=== PATIENT | female | born 1930 | race American Indian/Alaskan Native ===

== ENCOUNTER 2018-07-12 12:36 | Inpatient (IN) | payer MEDICARE, OTHER ==
[2018-07-12 12:51] VITALS: BMI 26.6
--- NOTE | 2018-07-12 13:07 | ED PDOC ---
Arrival/HPI - General Historian: Patient, Family - History of Present Illness Narrative History of Present Illness (Text): 07/12/18 1 88 year old female with a past medical history of diabetes, hypertension, hyperlipidemia, who presents to the hospital for lightheadedness and dizziness since this morning. 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 She reports taking both her blood pressure and diabetic medications this morning without eating. Patient denies any chest pain, fevers, chills, headaches, syncopal episodes, or any other complaints. Medical history: dm, htn, hld Medications: Hydralazine, Atorvastatin, Levimir, Losartan, Furosemide, Metoprolol, Aspirin 81mg PO Allergies: Denies Surgical: Can't recall PMD: Dr. Polk Time/Duration: Prior to Arrival Symptom Onset: Sudden Symptom Course: Unchanged Quality: Aching Severity Level: 1 Activities at Onset: Rest Context: Sitting <Maurice Moore - Last Filed: 07/12/18 20:43> Past Medical History - Provider Review Nursing Documentation Reviewed: Yes - Travel History Have you recently traveled outside [place] w/in the past 3 mons?: No - Infectious Disease Hx of Infectious Diseases: None - Reproductive Menopause: Yes - Cardiac Hx Hypertension: Yes - Psychiatric Hx Substance Use: No - Anesthesia Hx Anesthesia: No Hx Anesthesia Reactions: No Hx Malignant Hyperthermia: No <Maurice Moore - Last Filed: 07/12/18 20:43> Family/Social History - Physician Review Nursing Documentation Reviewed: Yes Family/Social History: No Known Family HX Smoking Status: Never Smoked Hx Alcohol Use: No Hx Substance Use: No <Maurice Moore - Last Filed: 07/12/18 20:43> Allergies/Home Meds <Maurice Moore - Last Filed: 07/12/18 20:43> <Michelet Cagle DO - Last Filed: 07/13/18 15:38> Allergies/Adverse Reactions: Allergies No Known Allergies Allergy (Verified 07/12/18 12:57) Home Medications: Home Meds Medication Instructions Recorded Confirmed Aspirin [Ecotrin] 1 tab PO DAILY 07/12/18 07/12/18 Insulin Detemir [Levemir] 20 units SC DAILY 07/12/18 07/12/18 Losartan [Cozaar] 1 tab PO DAILY 07/12/18 07/12/18 Metoprolol Tartrate [Lopressor] 1 tab PO DAILY 07/12/18 07/12/18 hydrALAZINE [hydralazine 50 mg PO BID 07/12/18 07/12/18 Hydrochloride] Review of Systems - Physician Review All systems were reviewed & negative as marked: Yes - Review of Systems Constitutional: Normal. absent: Fatigue, Weight Change, Fevers Eyes: Normal. absent: Vision Changes, Photophobia, Eye Pain ENT: Normal. absent: Hearing Changes, Tinnitus, Rhinorrhea Respiratory: Normal. absent: SOB, Sputum Cardiovascular: Normal. absent: Chest Pain, Palpitations, Syncope Gastrointestinal: Normal. absent: Abdominal Pain, Nausea, Vomiting Skin: Normal. absent: Rash, Pruritis, Skin Lesions Neurological: Dizziness. absent: Focal Weakness, Speech Changes, Facial Droop, Seizure Endocrine: Normal. absent: Diaphoresis, Polyuria, Polydipsia Hemo/Lymphatic: Normal. absent: Adenopathy, Easy Bleeding Psychiatric: Normal. absent: Anxiety, Depression <Maurice Moore - Last Filed: 07/12/18 20:43> Physical Exam Vital Signs Reviewed: Yes Vital Signs Temp Pulse Resp BP Pulse Ox 07/12/18 12:43 97.5 F L 74 19 138/89 97 Temperature: Afebrile Blood Pressure: Normal Pulse: Regular Respiratory Rate: Normal Appearance: Positive for: Well-Appearing, Non-Toxic, Comfortable Pain Distress: None Mental Status: Positive for: Alert and Oriented X 3. No: Confused - Systems Exam Head: Present: Atraumatic, Normocephalic. No: Abrasion Pupils: Present: PERRL. No: Sluggish Extroacular Muscles: Present: EOMI. No: Gaze Palsy Conjunctiva: Present: Normal. No: Injected Mouth: Present: Moist Mucous Membranes. No: Dry, Normal Teeth Pharnyx: Present: Normal. No: ERYTHEMA, Uvular Deviation Neck: Present: Normal Range of Motion. No: Meningeal Signs, JVD Respiratory/Chest: Present: Clear to Auscultation, Good Air Exchange. No: Wheezes Cardiovascular: Present: Irregular Rhythm. No: Tachycardic Abdomen: Present: Normal Bowel Sounds. No: Tenderness, Distention, McBurney's Point Tender Upper Extremity: Present: Normal Inspection. No: Cyanosis, Edema, Erythema Lower Extremity: Present: Normal Inspection. No: Edema Neurological: Present: CN II-XII Intact, Speech Normal. No: Normal Cerebellar Funct Skin: Present: Dry, Normal Color. No: Cold Psychiatric: Present: Oriented x 3, Normal Insight. No: Normal Mood, Homicidal Ideation <Maurice Moore - Last Filed: 07/12/18 20:43> Vital Signs Temp Pulse Resp BP Pulse Ox 07/12/18 12:43 97.5 F L 74 19 138/89 97 <Tsering Michelet MACE - Last Filed: 07/13/18 15:38> Medical Decision Making ED Course and Treatment: 07/12/18 13:09 88 year old female with a past medical history of diabetes, hypertension, hyperlipidemia, who presents to the hospital for lightheadedness and dizziness since this morning. Plan: CBC CMP ProBNP EKG Head CT IV Zofran 07/12/18 15:37 Dr. Polk accepted to her service. - RAD Interpretation Radiology Orders: 07/12/18 12:57 HEAD W/O CONTRAST [CT] Stat - EKG Interpretation EKG Interpretation (Text): 07/12/18 13:28 Atrial Fibrillation @88bpm No ST-T changes. Interpreted by ED Physician: Yes Type: 12 lead EKG <Maurice Moore - Last Filed: 07/12/18 20:43> ED Course and Treatment: 07/12/18 14:05 Soila Isidro is an 88 year old female with a past medical history of DM, HTN, and HLD, who presents to the emergency department for a complaint of lightheadedness and dizziness. In agreement with residents note, which includes further HPI details. Patient was seen and evaluated with resident, came up with plan and treatment together. - Lab Interpretations Lab Results: 07/12/18 13:30 07/12/18 13:30 Lab Results 07/12/18 13:30: Sodium 140, Potassium 4.0, Chloride 106, Carbon Dioxide 21, Anion Gap 17, BUN 24 H, Creatinine 1.1, Est GFR ( Amer) 57, Est GFR (Non- Af Amer) 47, Random Glucose 221 H, Calcium 10.0, Total Bilirubin 0.8, AST 34, ALT 36, Alkaline Phosphatase 108, Troponin I < 0.01, NT-Pro-B Natriuret Pep 1600 H, Total Protein 8.6 H, Albumin 4.6, Globulin 4.0, Albumin/Globulin Ratio 1.2 07/12/18 13:30: WBC 7.6, RBC 4.50, Hgb 12.7, Hct 37.2, MCV 82.7, MCH 28.2, MCHC 34.1, RDW 15.4 H, Plt Count 195, MPV 10.1, Gran % 79.4 H, Lymph % (Auto) 12.5 L, [place] % (Auto) 6.6 H, Eos % (Auto) 1.1 L, Baso % (Auto) 0.4, Gran # 6.05, Lymph # (Auto) 1.0 L, [place] # (Auto) 0.5, Eos # (Auto) 0.1, Baso # (Auto) 0.03 - RAD Interpretation Radiology Orders: 07/12/18 12:57 HEAD W/O CONTRAST [CT] Stat 07/12/18 13:58 CXR [CHEST PORTABLE] [RAD] Stat - Medication Orders Current Medication Orders: Discontinued Medications Meclizine HCl (Antivert) 25 mg PO STAT STA Stop: 07/12/18 13:59 Ondansetron HCl (Zofran Inj) 4 mg IVP STAT STA Stop: 07/12/18 13:14 Last Admin: 07/12/18 13:32 Dose: 4 mg IVP Administration Document 07/12/18 13:32 BB (Rec: 07/12/18 13:35 BB [id number]) Charges for Administration # of IVP Administrations 1 <Michelet Cagle DO - Last Filed: 07/13/18 15:38> - PA / ADVERTISING COPY WRITER / Resident Statement KEN has reviewed & agrees with the documentation as recorded. KEN has examined the patient and agrees with the treatment plan. <Mihcelet Cagle DO - Last Filed: 07/13/18 15:38> Disposition/Present on Arrival - Present on Arrival Any Indicators Present on Arrival: No History of DVT/PE: No History of Uncontrolled Diabetes: No Urinary Catheter: No History of Decub. Ulcer: No History Surgical Site Infection Following: None - Disposition Have Diagnosis and Disposition been Completed?: Yes Disposition Time: 15:37 Patient Plan: Admission <Maurice Moore - Last Filed: 07/12/18 20:43> - Disposition Disposition Time: 14:45 <Michelet Cagle DO - Last Filed: 07/13/18 15:38> - Disposition Diagnosis: Dizziness Disposition: HOSPITALIZED Patient Problems: Current Active Problems Problem Status Onset Dizziness Acute Condition: STABLE
[2018-07-12 13:38] LABS: BASO # 0.03 K/mm3 (0.0-2.0); BASO % 0.4 % (0.0-3.0); EOS # 0.1 (0.0-0.7); EOS % 1.1 % (1.5-5.0); GRAN # 6.05 (1.4-6.5); GRAN % 79.4 % (50.0-68.0); HEMOGLOBIN 12.7 g/dL (12.0-16.0); LYMPH % 12.5 % (22.0-35.0); MEAN CELL VOLUME 82.7 fl (80.0-105.0); MEAN CORPUSCULAR HEMOGLOBIN 28.2 pg (25.0-35.0); MEAN CORPUSCULAR HGB CONC 34.1 g/dl (31.0-37.0); MEAN PLATELET VOLUME 10.1 fl (7.0-11.0); MONO # 0.5 (0.1-0.6); MONO % 6.6 % (1.0-6.0); RBC 4.5 10^6/uL (3.5-6.1); RED CELL DISTRIBUTION WIDTH 15.4 % (11.5-14.5); WHITE BLOOD COUNT 7.6 10^3/uL (4.5-11.0)
[2018-07-12 13:45] LABS: ALB/GLOB RATIO 1.2 (1.1-1.8); ALBUMIN 4.6 g/dL (3.0-4.8); ALT/SGPT 36 U/L (7-56); AST/SGOT 34 U/L (14-36); BLOOD UREA NITROGEN 24 mg/dL (7-21); GFR NON-AFRICAN AMERICAN 47
--- NOTE | 2018-07-12 13:54 | CT ---
Date of service: 07/12/2018 PROCEDURE: CT HEAD WITHOUT CONTRAST. HISTORY: dizzy COMPARISON: None available. TECHNIQUE: Axial computed tomography images were obtained through the head/brain without intravenous contrast. Radiation dose: Total exam DLP = 1183.28 mGy-cm. This CT exam was performed using one or more of the following dose reduction techniques: Automated exposure control, adjustment of the mA and/or kV according to patient size, and/or use of iterative reconstruction technique. FINDINGS: HEMORRHAGE: No intracranial hemorrhage. BRAIN: No mass effect or edema. Chronic microvascular changes. Mild atrophy VENTRICLES: Unremarkable. No hydrocephalus. CALVARIUM: Unremarkable. PARANASAL SINUSES: Unremarkable as visualized. No significant inflammatory changes. MASTOID AIR CELLS: Unremarkable as visualized. No inflammatory changes. OTHER FINDINGS: None. IMPRESSION: No acute intracranial findings
[2018-07-12 13:57] LABS: B-TYPE NATRIURETIC PEPTIDE 1600 pg/mL (0-450); TROPONIN I < 0.01 ng/mL
[2018-07-12 14:10] LABS: URINE BILIRUBIN NEGATIVE (NEGATIVE); URINE BLOOD NEGATIVE (NEGATIVE); URINE GLUCOSE (UA) NEGATIVE (NEGATIVE); URINE LEUKOCYTE ESTERASE NEGATIVE Leu/uL (NEGATIVE); URINE PROTEIN NEGATIVE mg/dL (<30 mg/dL); URINE UROBILINOGEN 0.2 E.U./dL (<1 E.U./dL)
[2018-07-12 14:11] LABS: URINE APPEARANCE CLEAR (CLEAR); URINE COLOR YELLOW (YELLOW)
--- NOTE | 2018-07-12 14:56 | RAD ---
Date of service: 07/12/2018 HISTORY: r/o infiltrate COMPARISON: No prior. FINDINGS: LUNGS: No active pulmonary disease. PLEURA: No significant pleural effusion identified, no pneumothorax apparent. CARDIOVASCULAR: No aortic atherosclerotic calcification present. Severe cardiomegaly no pulmonary vascular congestion. OSSEOUS STRUCTURES: No significant abnormalities. VISUALIZED UPPER ABDOMEN: Normal. OTHER FINDINGS: None. IMPRESSION: No active disease. Severe cardiomegaly
--- NOTE | 2018-07-12 19:31 | CARD ---
APPROVED REPORT Date of service: 07/12/2018 EKG Measurement Heart [id number] <Conclusion> Atrial fibrillation T wave abnormality, consider inferolateral ischemia or digitalis effect Abnormal ECG
[2018-07-12] MEDS: Insulin Reg-LOW-Coverage SC SCH (23:38)
--- NOTE | 2018-07-13 06:19 | HP ---
DATE OF EXAM: <> CHIEF COMPLAINTS: Syncope, falling. HISTORY OF PRESENT ILLNESS: Ms. Soila Isidro an 88-year-old female with past medical history of diabetes mellitus, hypertension, hypercholesterolemia came to the hospital for lightheadedness, dizziness and this morning as per the patient, she missed her breakfast. The patient was setting up food for homeless when she became lightheaded and dizzy and hit her head. She reports taking both of her blood pressure and diabetes medications this morning without eating. The patient denied any chest pain. No fever, chills. No hematuria or hematochezia. PAST MEDICAL HISTORY: Diabetes mellitus, hypertension, hypercholesterolemia. HOME MEDICATIONS: Reviewed by me. ALLERGIES: THE PATIENT IS NOT ALLERGIC WITH ANY MEDICATIONS. FAMILY HISTORY: Father and mother, noncontributory. HABITS: Never smoke. No drugs, no ethanol. REVIEW OF SYSTEMS: The patient was seen and examined on the bedside in her room, looking comfortable. No hematuria or hematochezia. No swelling of the leg. No chest pain, no palpitations. No headache. No dizziness. Lying down comfortably. No fevers, no chills. PHYSICAL EXAMINATION: VITAL SIGNS: Temperature 97.5, pulse 74, respiratory rate 19, blood pressure 138/89, pulse oximetry 97. HEENT: Head: Normocephalic and atraumatic. Eyes: PERRLA. Extraocular muscles intact. Conjunctivae clear. Nose patent. NECK: Supple. No carotid bruit. No JVD or thyromegaly. CHEST: Bilaterally symmetrical. HEART: S1 and S2 positive. LUNGS: Clear to auscultation. ABDOMEN: Soft. Bowel sounds positive. No organomegaly. EXTREMITIES: No edema. No cyanosis. NEUROLOGICAL: The patient is awake, alert. Moving all 4 extremities. No focal deficits. LABORATORY DATA: White blood cells 4.6, hemoglobin 12.7, hematocrit 37.2, platelets 195,000. Sodium 140, potassium 4, BUN 24, creatinine 1.1, glucose 221, BNP 1500, calcium 8.6. ASSESSMENT AND PLAN: Ms. Soila Isidro an 88-year-old lady with increased BUN, hyperglycemia, congestive heart failure came with lightheadedness, feeling of passing out. CAT scan of the head is done, no acute intracranial findings. The patient almost passed out. The patient has history of diabetes mellitus, hypertension, hypercholesterolemia. Admitted the patient, called neurology and cardiology consult. Started on medication, home medications; keeping under observation. Gastrointestinal and deep venous thrombosis prophylaxis. Repeat labs. We will follow up. Gricel Price MD PAMELA
[2018-07-13 07:17] LABS: IRON 110 ug/dL (45-180)
[2018-07-13 07:23] LABS: HEMOGLOBIN 11.5 g/dL (12.0-16.0); MEAN CORPUSCULAR HEMOGLOBIN 27.9 pg (25.0-35.0); MEAN PLATELET VOLUME 10.5 fl (7.0-11.0); RBC 4.12 10^6/uL (3.5-6.1); RED CELL DISTRIBUTION WIDTH 15.4 % (11.5-14.5); WHITE BLOOD COUNT 5.8 10^3/uL (4.5-11.0)
[2018-07-13 07:27] LABS: % IRON SATURATION 38 % (20-55); TOTAL IRON BINDING CAPACITY 291 ug/dL (265-497)
[2018-07-13 07:32] LABS: LDL CHOLESTEROL 84 mg/dL (0-129)
[2018-07-13 07:33] LABS: TROPONIN I 0.04 ng/mL
[2018-07-13 07:43] LABS: BLOOD UREA NITROGEN 18 mg/dL (7-21); CALCIUM 9.4 mg/dL (8.4-10.5); GFR NON-AFRICAN AMERICAN 47; HDL CHOLESTEROL 81 mg/dL (29-60)
--- NOTE | 2018-07-13 08:53 | CP.PCM.CON ---
History of Present Illness - History of Present Illness History of Present Illness: Awake, alert, denies dizziness,feels okay Reason for consultation: Cardiac evaluation of lightheadedness and dizziness, history of hypertension, hyperlipidemia, diabetes mellitus Brief history of present illness: A 88 year old female who came in to the ER due to lightheadedness and dizziness yesterday morning. The patient was [facility] [employer] [facility] a [employer] for the [employer] when she became lightheaded, dizzy and fell and hit her head. She reports taking both her blood pressure and diabetic medications without eating. History of diabetes, hypertension, hyperlipidemia. Seen and examined by me and Dr. Jain Review of Systems - Review of Systems All systems: reviewed and no additional remarkable complaints except Review of Systems: as per HPI Past Patient History - Infectious Disease Hx of Infectious Diseases: None - Past Social History Smoking Status: Never Smoked - CARDIAC Hx Hypertension: Yes - PULMONARY Hx Respiratory Disorders: No - NEUROLOGICAL Hx Neurological Disorder: No - HEENT Hx Cataracts: Yes Other/Comment: s/p bilateral cataract surgery. - RENAL Hx Chronic Kidney Disease: No - ENDOCRINE/METABOLIC Hx Diabetes Mellitus Type 2: Yes - HEMATOLOGICAL/ONCOLOGICAL Hx Blood Disorders: No - INTEGUMENTARY Hx Dermatological Problems: No - MUSCULOSKELETAL/RHEUMATOLOGICAL Hx Falls: Yes - GASTROINTESTINAL Hx Gastrointestinal Disorders: No - GENITOURINARY/GYNECOLOGICAL Hx Genitourinary Disorders: No - PSYCHIATRIC Hx Substance Use: No - SURGICAL HISTORY Hx Surgeries: Yes Other/Comment: pt thinks she had hysterectomy and her ovaries removed a long time ago. - ANESTHESIA Hx Anesthesia: No Hx Anesthesia Reactions: No Hx Malignant Hyperthermia: No Meds Allergies/Adverse Reactions: Allergies Allergy/AdvReac Type Severity Reaction Status Date / Time No Known Allergies Allergy Verified 07/12/18 12:57 - Medications Medications: Current Medications Aspirin (Ecotrin) 81 mg PO DAILY [facility] Hydralazine HCl (Apresoline) 50 mg PO BID [facility] Last Admin: 07/12/18 18:52 Dose: 50 mg Insulin Detemir (Levemir) 20 unit SC DAILY [facility] Insulin Human Regular (Humulin R Low) [address] [facility]; Protocol Last Admin: 07/12/18 23:38 Dose: Not Given Losartan Potassium (Cozaar) 100 mg PO DAILY [facility] Metoprolol Tartrate (Lopressor) 25 mg PO DAILY [facility] Physical Exam - Constitutional Appears: Non-toxic, No Acute Distress - Head Exam Head Exam: NORMAL INSPECTION, NORMOCEPHALIC - Eye Exam Eye Exam: Normal appearance Pupil Exam: NORMAL ACCOMODATION - ENT Exam ENT Exam: Mucous Membranes Moist, Normal Exam - Respiratory Exam Respiratory Exam: Clear to Auscultation Bilateral, NORMAL BREATHING PATTERN - Cardiovascular Exam Cardiovascular Exam: Irregular Rhythm, +S1, +S2 Additional comments: Telemetry Atrial fibrillation 70-80's - GI/Abdominal Exam GI & Abdominal Exam: Normal Bowel Sounds, Soft - Extremities Exam Extremities exam: Positive for: full ROM, normal capillary refill - Neurological Exam Neurological exam: Alert, Oriented x3 - Psychiatric Exam Psychiatric exam: Normal Affect, Normal Mood - Skin Skin Exam: Dry, Normal Color, Warm Results - Vital Signs Recent Vital Signs: Last Vital Signs Temp 98.0 F 07/13/18 06:00 Pulse 77 07/13/18 06:00 Resp 13 07/13/18 06:00 BP 112/59 L 07/13/18 06:00 Pulse Ox 96 07/12/18 17:09 - Labs Result Diagrams: 07/13/18 06:30 07/13/18 06:30 Labs: Laboratory Results - last 24 hr 07/12/18 07/12/18 07/12/18 12:51 13:15 13:30 WBC 7.6 RBC 4.50 Hgb 12.7 Hct 37.2 MCV 82.7 MCH 28.2 MCHC 34.1 RDW 15.4 H Plt Count 195 MPV 10.1 Gran % 79.4 H Lymph % (Auto) 12.5 L [place] % (Auto) 6.6 H Eos % (Auto) 1.1 L Baso % (Auto) 0.4 Gran # 6.05 Lymph # (Auto) 1.0 L [place] # (Auto) 0.5 Eos # (Auto) 0.1 Baso # (Auto) 0.03 Sodium Potassium Chloride Carbon Dioxide Anion Gap BUN Creatinine Est GFR ( Amer) Est GFR (Non-Af Amer) POC Glucose (mg/dL) 193 H Random Glucose Calcium Iron TIBC % Saturation Total Bilirubin AST ALT Alkaline Phosphatase Lactate Dehydrogenase Total Creatine Kinase Troponin I NT-Pro-B Natriuret Pep Total Protein Albumin Globulin Albumin/Globulin Ratio Triglycerides Cholesterol LDL Cholesterol Direct HDL Cholesterol TSH 3rd Generation Urine Color Yellow Urine Appearance Clear Urine pH 6.0 Ur Specific [place] 1.010 Urine Protein Negative Urine Glucose (UA) Negative Urine Ketones Negative Urine Blood Negative Urine Nitrate Negative Urine Bilirubin Negative Urine Urobilinogen 0.2 Ur Leukocyte Esterase Negative 07/12/18 07/12/18 07/13/18 13:30 21:52 06:30 WBC RBC Hgb Hct MCV MCH MCHC RDW Plt Count MPV Gran % Lymph % (Auto) [place] % (Auto) Eos % (Auto) Baso % (Auto) Gran # Lymph # (Auto) [place] # (Auto) Eos # (Auto) Baso # (Auto) Sodium 140 140 Potassium 4.0 3.9 Chloride 106 107 Carbon Dioxide 21 25 Anion Gap 17 11 BUN 24 H 18 Creatinine 1.1 1.1 Est GFR ( Amer) 57 57 Est GFR (Non-Af Amer) 47 47 POC Glucose (mg/dL) 162 H Random Glucose 221 H 150 H Calcium 10.0 9.4 Iron TIBC % Saturation Total Bilirubin 0.8 AST 34 ALT 36 Alkaline Phosphatase 108 Lactate Dehydrogenase 599 Total Creatine Kinase 216 Troponin I < 0.01 0.04 D NT-Pro-B Natriuret Pep 1600 H Total Protein 8.6 H Albumin 4.6 Globulin 4.0 Albumin/Globulin Ratio 1.2 Triglycerides 58 Cholesterol 175 LDL Cholesterol Direct 84 HDL Cholesterol 81 H TSH 3rd Generation Urine Color Urine Appearance Urine pH Ur Specific [place] Urine Protein Urine Glucose (UA) Urine Ketones Urine Blood Urine Nitrate Urine Bilirubin Urine Urobilinogen Ur Leukocyte Esterase 07/13/18 07/13/18 07/13/18 06:30 06:30 06:30 WBC 5.8 D RBC 4.12 Hgb 11.5 L Hct 33.8 L MCV 82.0 MCH 27.9 MCHC 34.0 RDW 15.4 H Plt Count 182 MPV 10.5 Gran % Lymph % (Auto) [place] % (Auto) Eos % (Auto) Baso % (Auto) Gran # Lymph # (Auto) [place] # (Auto) Eos # (Auto) Baso # (Auto) Sodium Potassium Chloride Carbon Dioxide Anion Gap BUN Creatinine Est GFR ( Amer) Est GFR (Non-Af Amer) POC Glucose (mg/dL) Random Glucose Calcium Iron 110 TIBC 291 % Saturation 38 Total Bilirubin AST ALT Alkaline Phosphatase Lactate Dehydrogenase Total Creatine Kinase Troponin I NT-Pro-B Natriuret Pep Total Protein Albumin Globulin Albumin/Globulin Ratio Triglycerides Cholesterol LDL Cholesterol Direct HDL Cholesterol TSH 3rd Generation 0.30 L Urine Color Urine Appearance Urine pH Ur Specific [place] Urine Protein Urine Glucose (UA) Urine Ketones Urine Blood Urine Nitrate Urine Bilirubin Urine Urobilinogen Ur Leukocyte Esterase 07/13/18 07:31 WBC RBC Hgb Hct MCV MCH MCHC RDW Plt Count MPV Gran % Lymph % (Auto) [place] % (Auto) Eos % (Auto) Baso % (Auto) Gran # Lymph # (Auto) [place] # (Auto) Eos # (Auto) Baso # (Auto) Sodium Potassium Chloride Carbon Dioxide Anion Gap BUN Creatinine Est GFR ( Amer) Est GFR (Non-Af Amer) POC Glucose (mg/dL) 148 H Random Glucose Calcium Iron TIBC % Saturation Total Bilirubin AST ALT Alkaline Phosphatase Lactate Dehydrogenase Total Creatine Kinase Troponin I NT-Pro-B Natriuret Pep Total Protein Albumin Globulin Albumin/Globulin Ratio Triglycerides Cholesterol LDL Cholesterol Direct HDL Cholesterol TSH 3rd Generation Urine Color Urine Appearance Urine pH Ur Specific [place] Urine Protein Urine Glucose (UA) Urine Ketones Urine Blood Urine Nitrate Urine Bilirubin Urine Urobilinogen Ur Leukocyte Esterase Assessment & Plan - Assessment and Plan (Free Text) Assessment: A 88 year old female who came in to the ER due to lightheadedness and dizziness yesterday morning. The [facility] was [facility] [employer] [facility] a [employer] for the homelesss when she became lightheaded, dizzy and fell and hit her head. She reports taking both her blood pressure and diabetic medications without eating. History of diabetes, hypertension, hyperlipidemia. EKG showed Atrial fibrillation, T-wave abnormality,consider inferolateral ischemia. Troponin 0.01/0.04. Chest X ray- severe cardiomegaly, no vascular congestion. New onset atrial fibrillation. Echo to evaluate LV function. rule out postural hypotension, orthostatic vital signs,No previous cardiac work up at [facility]. Plan: Echo to evaluate LV function Denies chest pain or shortness of breath Serial troponin, 0.01/0.04, will order one more level On ASA 81 mg daily,Hydralazine 50 mg BID,Cozaar 100 mg daily Lopressor 25 mg daily Orthostatic vital signs for hypotension Continue current treatment Continue current medications Chart reviewed Will follow up Further recommendations during hospital course Seen and examined by me and Dr. Jain Thank you Dr. Price for the opportunity of taking care of Ms. Soila Isidro - Date & Time Date: 07/13/18 Time: 06:45
[2018-07-13] MEDS: Insulin Detemir 100 units/ml Vial (Levemir) SC SCH (09:58)
[2018-07-13] MEDS: Insulin Reg-LOW-Coverage SC SCH ×4 (09:58→22:34)
[2018-07-13 12:30] LABS: FOLATE > 20.0 ng/mL
--- NOTE | 2018-07-13 14:08 | CON ---
DATE: 07/12/2018 CHIEF COMPLAINT: Dizziness. HISTORY OF PRESENT ILLNESS: This is an 88-year-old woman with history of hypertension, hyperlipidemia, type 2 diabetes mellitus, who came in to the hospital because of lightheadedness and dizziness, noticed spinning sensation in the room, while she was at [employer], setting up a jolley for the homeless, when she felt spinning sensation and fell and hit her head, but no loss of consciousness. She said she took her blood pressure medication and diabetes medications without the rehab. Currently, she has mild low systolic and diastolic blood pressures when she came in to the ER, but it currently it is much stabilized. Neuro exam is nonfocal except for the mild peripheral neuropathy on examination, which does affect her balance. She is on aspirin 81 mg p.o. daily for stroke prevention. Cardiology is on board. A1c is 7.7 indicating poorly controlled diabetes. Her B12 level is more than 1000. PAST MEDICAL HISTORY: As above. ALLERGIES: NO KNOWN DRUG ALLERGIES. SOCIAL HISTORY: No illicit drug use, smoking, or EtOH abuse. REVIEW OF SYSTEMS: A 14-point review of systems is negative except as per the HPI. FAMILY HISTORY: Noncontributory. PHYSICAL EXAMINATION: VITAL SIGNS: Temperature 99.2, pulse rate of 90, blood pressure 130/72, respiratory rate 17. GENERAL: The patient is sitting up in bed, in no acute distress. HEENT: Atraumatic, normocephalic. PERRLA. Extraocular muscles intact. NECK: Supple. No JVD. No adenopathy noted. LUNGS: Clear to auscultation. No adventitious sounds. HEART: S1 and S2. Normal rate and rhythm. No murmurs, rubs or gallops. ABDOMEN: Soft, nontender and nondistended. Bowel sounds are present. EXTREMITIES: No clubbing. No cyanosis. Peripheral pulses 2+ felt bilaterally. NEUROLOGIC: The patient is alert and oriented to person, place, month, and year. Speech is fluent without any errors. Cranial nerves II through XII are intact. Motor Exam: Moves all extremities equally. No pronator drift is seen. Sensory exam: Decreased light touch, pinprick, proprioception and vibration are intact. DTRs are 2+ at both knees and ankles. Coordination: Tulybr-rx-fths intact. No dysmetria noted. Gait is deferred for now. LABORATORY DATA: Sodium is 140, potassium 3.9, chloride 107, carbon dioxide 25, BUN of 18, creatinine of 1.1, random glucose 150, A1c is 7.7. IMPRESSION AND PLAN: Dizziness is more of a positional vertigo, which is transient, superimposed underlying mild peripheral neuropathy affecting her balance. At this time, I would recommend; 1. Aspirin 81 mg p.o. daily for stroke prevention. 2. Orthostatic vital signs. 3. Advised avoiding sudden movements and meclizine 25 mg p.o. at the acute onset of dizziness. 4. Salt restriction in diet. 5. PT/OT evaluation. Thank you for this consult Luis Richter MD
--- NOTE | 2018-07-13 15:19 | RAD ---
PROCEDURE: Radiographs of the Right Shoulder HISTORY: r/o fracture COMPARISON: Chest x-ray performed 07/12/18 FINDINGS: Suboptimal scapular Y-views. BONES: No acute displaced fracture. The distal clavicle and underlying ribs appear intact. JOINTS: No acute dislocation. SOFT TISSUES: Soft tissues appear unremarkable. No evidence of radiopaque foreign body. IMPRESSION: No acute displaced fracture identified. If high clinical index of suspicion persists, cross-sectional imaging may be considered. Otherwise, if symptoms persist or if there is continued clinical concern, x-ray follow-up in 7-10 days should be considered.
[2018-07-13] MEDS: Pantoprazole 40 mg EC Tab PO SCH (15:49)
[2018-07-13 17:06] LABS: INR 1.21; PARTIAL THROMBOPLASTIN TIME 27.4 Seconds (25.1-36.5); PROTHROMBIN TIME 13.9 SECONDS (9.4-12.5)
--- NOTE | 2018-07-13 20:48 | CARD ---
APPROVED REPORT Date of service: 07/13/2018 EXAM: Two-dimensional and M-mode echocardiogram with Doppler and color Doppler. INDICATION Syncope 2D DIMENSIONS Left Atrium (2D)4.8 (1.6-4.0cm)IVSd1.8 (0.7-1.1cm) Aortic Root (2D)3.9 (2.0-3.7cm)LVDd2.1 (3.9-5.9cm) PWd2.3 (0.7-1.1cm)LVDs1.5 (2.5-4.0cm) FS (%) 28.2 %LVEF (%)57.2 (>50%) M-Mode DIMENSIONS Aortic Cusp Exc.1.90 (1.5-2.0cm) Aortic Valve AoV Peak Gvuxtefy163.0cm/Kal Peak GR.4mmHgLVOT Peak Oaqboher114.0cm/s LVOT VTI53.80cm Mitral Valve MV E Lzosmnxj229.0cm/s TDI Lateral E' Peak V6.63cm/sMedial E' Peak V4.09cm/sE/Lateral E'22.0 E/Medial E'35.7 Tricuspid Valve TR Peak Zglzdnbr771yr/sRAP UQWZWMHY2xoOtHF Peak Gr.62mmHg [id number] LEFT VENTRICLE The left ventricle is normal size. There is moderate concentric left ventricular hypertrophy. Proximal septal thickening is noted.with IHSS physiology and peak gradient 36 mmof Hg. The left ventricular function is normal.EF-55-60 mmof Hg. There is normal LV segmental wall motion. A fib No left ventricle thrombus noted on this study. There is no ventricular septal defect visualized. There is no left ventricular aneurysm. There is no mass noted in the left ventricle. RIGHT VENTRICLE The right ventricle is moderately dilated. The right ventricle is mildly hypertrophied. The right ventricular systolic function is normal. ATRIA The left atrium is moderately dilated. The right atrium is mildly dilated. The interatrial septum is intact with no evidence for an atrial septal defect. AORTIC VALVE The aortic valve is thickened but opens well. There is trace aortic regurgitation. There is no aortic valvular stenosis. There is no aortic valvular vegetation. MITRAL VALVE The mitral valve is thickened but opens well. Mitral regurgitation is mild to moderate. There is no mitral valve stenosis. There is no evidence of mitral valve prolapse. TRICUSPID VALVE The tricuspid valve leaflets are thickened , but open well. There is moderate tricuspid regurgitation.[id number] There is moderate pulmonary hypertension. mmof Hg. There is no tricuspid valve stenosis. There is no tricuspid valve prolapse or vegetation. PULMONIC VALVE The pulmonary valve is normal in structure. There is trace to mild pulmonic valvular regurgitation. There is no pulmonic valvular stenosis. GREAT VESSELS The aortic root is normal in size. The ascending aorta is normal in size. The pulmonary artery is normal. The IVC is normal in size and collapses >50% with inspiration. PERICARDIAL EFFUSION There is no pleural effusion. There is no pericardial effusion. <Conclusion> The left ventricle is normal size. There is moderate concentric left ventricular hypertrophy. Proximal septal thickening is noted.with IHSS physiology and peak gradient 36 mmof Hg. The left ventricular function is normal.EF-55-60 mmof Hg. There is trace aortic regurgitation. Mitral regurgitation is mild to moderate. There is moderate tricuspid regurgitation.[id number] There is moderate pulmonary hypertension. mmof Hg. There is trace to mild pulmonic valvular regurgitation. The IVC is normal in size and collapses >50% with inspiration. There is no pericardial effusion.
[2018-07-14 06:13] LABS: FREE T4 1.2 ng/dL (0.78-2.19)
[2018-07-14 06:27] LABS: T3 0.78 ng/mL (0.97-1.69)
--- NOTE | 2018-07-14 07:10 | CP.PCM.PN ---
Subjective - Date & Time of Evaluation Date of Evaluation: 07/14/18 Time of Evaluation: 06:50 - Subjective Subjective: denies dizziness,denies chest pain,awake,alert Reason for consultation: Cardiac evaluation of lightheadedness and dizziness, history of hypertension, hyperlipidemia, diabetes mellitus,new onset atrial fibrillation Seen and examined by me and Dr. Jain Objective - Vital Signs/Intake and Output Vital Signs (last 24 hours): Temp Pulse Resp BP Pulse Ox 99.2 F 105 H 20 134/85 99 07/14/18 00:01 07/14/18 02:00 07/14/18 00:01 07/14/18 00:01 07/14/18 00:01 Intake and Output: 07/14/18 07/14/18 06:59 18:59 Intake Total 120 Output Total 120 Balance 0 - Medications Medications: Current Medications Acetaminophen (Tylenol 325mg Tab) 650 mg PO Q6H PRN PRN Reason: Pain, Mild (1-3) Last Admin: 07/13/18 15:49 Dose: 650 mg Apixaban (Eliquis) 5 mg PO BID [facility]; Protocol Last Admin: 07/13/18 17:21 Dose: 5 mg Aspirin (Ecotrin) 81 mg PO DAILY [facility] Last Admin: 07/13/18 09:59 Dose: 81 mg Hydralazine HCl (Apresoline) 50 mg PO BID [facility] Last Admin: 07/13/18 17:36 Dose: 50 mg Insulin Detemir (Levemir) 20 unit SC DAILY [facility] Last Admin: 07/13/18 09:58 Dose: 20 unit Insulin Human Regular (Humulin R Low) 0 units SC [facility]; Protocol Last Admin: 07/13/18 22:34 Dose: Not Given Lidocaine (Lidoderm) 1 ea TOP DAILY [facility] Losartan Potassium (Cozaar) 100 mg PO DAILY [facility] Last Admin: 07/13/18 10:07 Dose: 100 mg Metoprolol Tartrate (Lopressor) 50 mg PO BID [facility] Last Admin: 07/13/18 17:37 Dose: 50 mg Pantoprazole Sodium (Protonix Ec Tab) 40 mg PO DAILY [facility] Last Admin: 07/13/18 15:49 Dose: 40 mg - Labs Labs: 07/13/18 06:30 07/13/18 06:30 PT 13.9 SECONDS (9.4-12.5) H 07/13/18 16:54 INR 1.21 07/13/18 16:54 APTT 27.4 Seconds (25.1-36.5) 07/13/18 16:54 - Constitutional Appears: Non-toxic, No Acute Distress - Head Exam Head Exam: NORMAL INSPECTION, NORMOCEPHALIC - Eye Exam Eye Exam: Normal appearance Pupil Exam: NORMAL ACCOMODATION - ENT Exam ENT Exam: Mucous Membranes Moist, Normal Exam - Respiratory Exam Respiratory Exam: Clear to Ausculation Bilateral, NORMAL BREATHING PATTERN - Cardiovascular Exam Cardiovascular Exam: Irregular Rhythm, +S1, +S2 Additional comments: Telemetry atrial fibrillation 80-90's - GI/Abdominal Exam GI & Abdominal Exam: Soft, Normal Bowel Sounds - Extremities Exam Extremities Exam: Full ROM, Normal Capillary Refill - Neurological Exam Neurological Exam: Alert, Awake, Oriented x3 - Psychiatric Exam Psychiatric exam: Normal Affect, Normal Mood - Skin Skin Exam: Dry, Normal Color, Warm Assessment and Plan - Assessment and Plan (Free Text) Assessment: A 88 year old female who came in to the ER due to lightheadedness and dizziness yesterday morning. The patient was at [employer] setting up a jolley for the homelesss when she became lightheaded, dizzy and fell and hit her head. She reports taking both her blood pressure and diabetic medications without eating. History of diabetes, hypertension, hyperlipidemia. EKG showed Atrial fibrillation, T-wave abnormality,consider inferolateral ischemia. Troponin 0.01/0.04. Chest X ray- severe cardiomegaly, no vascular congestion. New onset atrial fibrillation.Started Eliquis. Echo to evaluate LV function. rule out postural hypotension, [place] previous cardiac [place] [facility] [place] done - LV size normal, moderate concentric left ventricular hypertrophy, Proximal septal thickening noted with IHSS physiology and peak gradient 36mmHg, LVEF is 55-60 %, Trace aortic regurgitation, mild to moderate mitral regurgitation, moderate tricuspid regurgitation RVSP 65 mmHg,moderate pulmonary hypertension, trace to mild pulmonic valvular regurgitation, no pericardial effusion. Plan: Echo done - LV size normal, moderate concentric left ventricular hypertrophy, Proximal septal thickening noted with IHSS physiology and peak gradient 36mmHg LVEF is 55-60 %, Trace aortic regurgitation, mild to moderate mitral regurgitation, moderate tricuspid regurgitation RVSP 65 mmHg,moderate pulmonary hypertension, trace to mild pulmonic valvular regurgitation, no pericardial effusion Denies chest pain or shortness of breath Serial troponin, 0.01/0.04/0.03 -indeterminate On ASA 81 mg daily,Hydralazine 50 mg BID,Cozaar 100 mg daily Lopressor 25 mg daily Orthostatic vital signs negative for hypotension Lying BP 151/88 Sitting BP 155/77 Standing BP 145/93 Telemetry atrial fibrillation 90-100's Increased Lopressor to 50 mg BID Started on Eliquis 5 mg BID Continue current treatment Continue current medications Chart reviewed Will follow up Seen and examined by me and Dr. Jain
[2018-07-14] MEDS: Lidocaine 5% Patch TOP SCH (09:29)
[2018-07-14] MEDS: Insulin Detemir 100 units/ml Vial (Levemir) SC SCH (09:29)
[2018-07-14] MEDS: Pantoprazole 40 mg EC Tab PO SCH (09:30)
[2018-07-14] MEDS: Insulin Reg-LOW-Coverage SC SCH ×4 (09:39→21:55)
--- NOTE | 2018-07-14 14:30 | CT ---
Indication: Rule out fracture Noncontrast CT of the right shoulder Comparison: Right shoulder radiographs performed 07/13/18 Technique: Noncontrast axial images of the right shoulder. Sagittal coronal reformatted images were generated and reviewed. This CT exam was performed using 1 or more of the falling dose reduction techniques: Automated exposure control, adjustment of the MAA and/or kV according to patient size, and/or use of iterative reconstruction technique. Total exam DLP: 379.44 Findings: No acute displaced fracture. No dislocation. Degenerative changes. Acromioclavicular arthropathy. Subchondral cysts, distal clavicle. Soft tissues appear unremarkable. No evidence of retained radiopaque foreign body. Limited visualization of the lung to reveals partially imaged cardiomegaly. No visible focal consolidation or pneumothorax. Impression: No acute fracture or dislocation.
--- NOTE | 2018-07-15 07:23 | CP.PCM.PN ---
Subjective - Date & Time of Evaluation Date of Evaluation: 07/15/18 Time of Evaluation: 06:35 - Subjective Subjective: Awake,alert, denies dizziness,denies chest pain Reason for consultation and follow up: Cardiac evaluation of lightheadedness and dizziness, history of hypertension, hyperlipidemia, diabetes mellitus, new onset atrial fibrillation started on Eliquis Seen and examined by me and Dr. Lemon Objective - Vital Signs/Intake and Output Vital Signs (last 24 hours): Temp Pulse Resp BP Pulse Ox 98.8 F 98 H 18 121/81 98 07/15/18 06:00 07/15/18 06:00 07/15/18 06:00 07/15/18 06:00 07/15/18 06:00 Intake and Output: 07/15/18 07/15/18 06:59 18:59 Intake Total 1900 Output Total 850 Balance 1050 - Medications Medications: Current Medications Acetaminophen (Tylenol 325mg Tab) 650 mg PO Q6H PRN PRN Reason: Pain, Mild (1-3) Last Admin: 07/14/18 22:30 Dose: 650 mg Apixaban (Eliquis) 5 mg PO BID [facility]; Protocol Last Admin: 07/14/18 18:14 Dose: 5 mg Aspirin (Ecotrin) 81 mg PO DAILY [facility] Last Admin: 07/14/18 09:30 Dose: 81 mg Diltiazem HCl (Cardizem) 30 mg PO TID [facility] Last Admin: 07/14/18 18:14 Dose: 30 mg Hydralazine HCl (Apresoline) 50 mg PO BID [facility] Last Admin: 07/14/18 18:13 Dose: 50 mg Insulin Detemir (Levemir) 20 unit SC DAILY [facility] Last Admin: 07/14/18 09:29 Dose: 20 unit Insulin Human Regular (Humulin R Low) 0 units SC ACHS [facility]; Protocol Last Admin: 07/14/18 21:55 Dose: Not Given Lidocaine (Lidoderm) 1 ea TOP DAILY [facility] Last Admin: 07/14/18 09:29 Dose: 1 ea Losartan Potassium (Cozaar) 100 mg PO DAILY [facility] Last Admin: 07/14/18 09:37 Dose: 100 mg Pantoprazole Sodium (Protonix Ec Tab) 40 mg PO DAILY [facility] Last Admin: 07/14/18 09:30 Dose: 40 mg Sotalol HCl (Betapace) 80 mg PO BID [facility] Last Admin: 07/14/18 18:13 Dose: 80 mg - Labs Labs: 07/13/18 06:30 07/13/18 06:30 PT 13.9 SECONDS (9.4-12.5) H 07/13/18 16:54 INR 1.21 07/13/18 16:54 APTT 27.4 Seconds (25.1-36.5) 07/13/18 16:54 - Constitutional Appears: Non-toxic, No Acute Distress - Head Exam Head Exam: NORMAL INSPECTION, NORMOCEPHALIC - Eye Exam Eye Exam: Normal appearance Pupil Exam: NORMAL ACCOMODATION - ENT Exam ENT Exam: Mucous Membranes Moist, Normal Exam - Respiratory Exam Respiratory Exam: Clear to Ausculation Bilateral, NORMAL BREATHING PATTERN - Cardiovascular Exam Cardiovascular Exam: Irregular Rhythm, +S1, +S2 Additional comments: Telemetry atrial fib/atrial flutter 80's - GI/Abdominal Exam GI & Abdominal Exam: Soft, Normal Bowel Sounds - Extremities Exam Extremities Exam: Full ROM, Normal Capillary Refill - Neurological Exam Neurological Exam: Alert, Awake, Oriented x3 - Psychiatric Exam Psychiatric exam: Normal Affect, Normal Mood - Skin Skin Exam: Dry, Normal Color, Warm Assessment and Plan - Assessment and Plan (Free Text) Assessment: A 88 year old female who came in to the ER due to lightheadedness and dizziness yesterday morning. The patient was at [employer] setting up a jolley for the homelesss when she became lightheaded, dizzy and fell and hit her head. She reports taking both her blood pressure and diabetic medications without eating. History of diabetes, hypertension, hyperlipidemia. EKG showed Atrial fibrillation, T-wave abnormality,consider inferolateral ischemia. Chest X ray- severe cardiomegaly, no vascular congestion. New onset atrial fibrillation.Started Eliquis. Rule out postural hypotension, No previous cardiac work [place] [facility] [place] Serial troponin, 0.01/0.04/0.03 -indeterminate. Will treat medically/conservatively. Lightheadedness/ dizziness secondary to IHSS physiology. Echo done - LV size normal, moderate concentric left ventricular hypertrophy, Proximal septal thickening noted with IHSS physiology and peak gradient 36mmHg, LVEF is 55-60 %, Trace aortic regurgitation, mild to moderate mitral regurgitation, moderate tricuspid regurgitation RVSP 65 mmHg,moderate pulmonary hypertension, trace to mild pulmonic valvular regurgitation, no pericardial effusion. Plan: Denies chest pain or shortness of breath Complaints of right shoulder pain, CT and Xray negative for fracture On ASA 81 mg daily,Hydralazine 50 mg BID,Cozaar 100 mg daily Lopressor 50 mg daily,Eliquis 5 mg BID Telemetry atrial fibrillation /Atrial flutter 90-100's On Eliquis Stable from cardiac standpoint May discharge Out patient stress test Continue current treatment Continue current medications Chart reviewed Will follow up Seen and examined by me and Dr. Lemon
[2018-07-15] MEDS ORDERED: Bupivacaine 0.5% Inj(30mL) IJ ONE (07:25)
[2018-07-15] MEDS ORDERED: MethylPREDNISolone Depo 40 mg/ml Inj IM ONE (07:25)
--- NOTE | 2018-07-15 07:58 | PN ---
DATE: 07/13/2018 SUBJECTIVE: The patient is 88 years old female. The patient seen and examined at bedside on 07/13/2018. The patient is feeling a little bit better, but still complaining more of a lightheaded pain in the right shoulder. No fever, no chills, no headache, no dizziness. No chest pain. No palpitation. No nausea, vomiting, or diarrhea. No hematuria. No hematochezia. PHYSICAL EXAMINATION: VITAL SIGNS: Temperature 99.2, pulse 90, respiratory rate 17, blood pressure 130/70. HEENT: Head: Normocephalic and atraumatic. Eyes: PERRLA. Extraocular muscles intact. Conjunctivae clear. Nose patent. NECK: Supple. No carotid bruit. No JVD or thyromegaly. CHEST: Bilaterally symmetrical. HEART: S1 and S2 positive. LUNGS: Clear to auscultation. ABDOMEN: Soft. Bowel sounds positive. No organomegaly. EXTREMITIES: Lower extremities no edema, no cyanosis. Right upper extremity range of motion is decreased. LABORATORY DATA: Sodium 140, potassium 3.9. BUN 18, creatinine 1.1. Glucose 150. Hemoglobin A1c 7.7. White blood cells 5.8, hemoglobin 11.5, hematocrit 33.8, platelets 182. Troponin 0.03. ASSESSMENT AND PLAN: Ms. Sanna Cm is an 88 years old female with anemia, diabetes mellitus; uncontrolled, rule out congestive heart failure. Brain natriuretic peptide is high. Came with feelings of passing out. Seen by the neurologist, Dr. Luis Richter. Dizziness is more positional vertigo, which is transient superimposed underlying mild peripheral neuropathy affecting her balance. The patient will be taking aspirin. Orthostatic vital signs. Advised to avoid sudden movement. Added meclizine. Heart restriction. Out of bed physical therapy. Shoulder x-ray reviewed by me. We will do CAT scan of the shoulder. Seen by the visual merchandising specialist, Dr. Jain, the nurse practitioner. There is no history of hypertension, still has lightheadedness. Workshop Manager want to do echocardiography, serial troponin. Discussion done with the patient's daughter and the patient's nurse. Out of bed physical therapy. Will follow up. Gricel Price MD [facility] # [id number]
--- NOTE | 2018-07-15 08:02 | CON ---
ADDENDUM: This is an addendum to the consultation already dictated by Nelia Chang APN. DATE OF CONSULTATION: 07/13/2018 HISTORY OF PRESENT ILLNESS: The patient admitted with a history that she is known case of hypertension, diabetes mellitus and she felt dizzy and fell down. She denies a syncopal episode. She says that she knew she was falling around. At the time of fall, she denies any chest pain, shortness of breath, palpitation. The patient found to be in atrial fibrillation. Lab data showing TSH low, which is 0.30. DIAGNOSES: Atrial fibrillation, dizziness, fall, hypertension, diabetes mellitus, hypercholesterolemia. PLAN: My plan is to anticoagulate the patient with Eliquis 5 b.i.d. The patient was taking Lopressor 25 daily. I am going to increase it to 50 b.i.d. The patient will have echo today and we will follow that. The patient already on hydralazine 50 b.i.d., losartan 100 daily, aspirin 81 daily. We will also add Protonix 40 p.o. daily and we will monitor the heart rate and follow the echo report. Jorge Jain MD
--- NOTE | 2018-07-15 08:05 | PN ---
DATE: 07/14/2018 The patient is known to have hypertension, diabetic, hyperlipidemia, admitted with dizziness and a fall and the patient found to have atrial fibrillation. The patient denies any syncope. According to neurologist, Dr. Luis Richter's evaluation the patient's dizziness is positional, vertigo and unsteadiness is related to peripheral neuropathy. The patient's echocardiogram showed normal LV, ejection fraction is 55-60%. LVH, IHSS configuration, physiology and peak gradient of 36 mmHg, mitral regurgitation [id number], moderate tricuspid regurgitation with RVSP 65 mmHg suggestive of moderate pulmonary hypertension. PLAN: I started the patient on Eliquis yesterday and I also increased her Lopressor to 50 b.i.d. The patient still in atrial fibrillation so we will discontinue Lopressor, we will put Cardizem 30 t.i.d. and we will add sotalol 80 b.i.d. to try to convert it to sinus rhythm. The patient's T4 is 1.2 which is normal. TSH today is normal 0.48. Total T3 is 0.78 which is low. Earlier TSH was low, but now it is normal. So, we are putting Cardizem and sotalol today. We will monitor the patient and whether she converts to regular sinus rhythm with these medications. We will follow. Jorge Jain MD
--- NOTE | 2018-07-15 09:00 | PN ---
DATE: 07/14/2018 SUBJECTIVE: The patient is 88 years old female. The patient was seen and examined at the bedside on 07/14/2018. He is still having pain in the right shoulder. No fever. No chills. No nausea. No vomiting. No diarrhea. No hematuria or hematochezia. Still having lightheadedness and dizziness. No swelling of the legs. No chest pain. No palpitations. PHYSICAL EXAMINATION VITAL SIGNS: Temperature 99.2, pulse 105, respiratory rate 20, blood pressure 134/85, pulse oximetry 99%. HEENT: Head; normocephalic, atraumatic. Eyes; PERRLA. Extraocular muscles are intact. Conjunctivae clear. Nose patent. Mucous membranes moist. NECK: Supple. No carotid bruits. No JVD or thyromegaly. CHEST: Bilaterally symmetrical. HEART: S1 and S2 positive. LUNGS: Clear to auscultation. ABDOMEN: Soft. Bowel sounds positive. No organomegaly. EXTREMITIES: No edema. No cyanosis. Moving extremities except right upper extremity range of motion is decreased. NEUROLOGIC: The patient is awake and alert. Follows simple command. LABORATORY DATA: White blood cells 5.8, hemoglobin 11.5, hematocrit 33.8. Sodium 140, potassium 3.9, BUN 18, creatinine 1.1, glucose 150. MEDICATIONS: Tylenol, Eliquis, Ecotrin, hydralazine, Levemir, Lidoderm, Cozaar, Lopressor, and Protonix. ASSESSMENT AND PLAN: Ms. Isidro is an 88 years old lady with anemia, hyperglycemia, came with lightheadedness, dizziness, like a feeling of passing out, and had fall on the right shoulder, having pain in the right shoulder. X-ray done, CAT scan done, reviewed by me. I called consult with Dr. Smith. patient need intraarticular injection. Seen by Neurology, Dr. Richter and certified personal finance counselor, Dr. Jain's nurse practitioner. The patient has a history of hypercholesterolemia, diabetes mellitus type 2, positional vertigo, superimposed peripheral neuropathy. Continue present treatment, especially aspirin and salt restriction. Gastrointestinal and deep venous thrombosis prophylaxis. Repeat labs. Discussion done with the patient's nurse. Physical therapy. Gricel Price MD [facility] # [id number] PAMELA
[2018-07-15] MEDS: Insulin Detemir 100 units/ml Vial (Levemir) SC SCH (09:01)
[2018-07-15] MEDS: Insulin Reg-LOW-Coverage SC SCH ×4 (09:02→22:00)
[2018-07-15] MEDS: Pantoprazole 40 mg EC Tab PO SCH (09:03)
[2018-07-15] MEDS: Lidocaine 5% Patch TOP SCH (09:04)
--- NOTE | 2018-07-15 18:44 | MRI ---
Date of service: 07/15/2018 PROCEDURE: MRI BRAIN WITHOUT CONTRAST HISTORY: Falls, favoring right side COMPARISON: Comparison made with prior CT scan brain dated 07/12/2018 TECHNIQUE: Multiplanar, multisequence MR images of the brain were obtained without intravenous contrast enhancement. Significant susceptibility artifact obscures the left cerebellum and left occipital pole as well as most of the left temporal lobe and some of the left occipito parietal occipito parietal and temporoparietal the FINDINGS: HEMORRHAGE: No acute parenchymal, subarachnoid or extra-axial hemorrhage. DWI: Large acute infarct right cerebellar hemisphere.. There appears to be involvement of the right parasagittal and mid vermis as well. Significant susceptibility artifact partially obscures a good portion of the left posterior temporal lobe all of the occipital pole and posterior parieto-occipital watershed zone.. Therefore acute infarcts in these locations cannot be adequately evaluated on axial diffusion, axial gradient echo and some of the coronal T2 weighted sequences BRAIN PARENCHYMA: Mild diffuse/confluent chronic periventricular white matter ischemic changes on are present. Additionally, there are numerous small chronic appearing infarcts in the the deep as well as subcortical white matter of both cerebral hemispheres. Few scattered superior basal nuclei and brainstem lacunar type infarcts also present. Moderate generalized volume loss. VENTRICLES: No obstructive the upper hydrocephalus. CRANIUM: Unremarkable. ORBITS: Changes of bilateral cataract surgery. PARANASAL SINUSES/MASTOIDS: Clear VASCULAR SYSTEM: Skull base flow voids intact. OTHER FINDINGS: None IMPRESSION: Very limited study due to significant susceptibility artifact which obscures the left cerebellum, most of the left temporal lobe as well as all the occipital pole and left posterior temporoparietal watershed zone on the axial diffusion, axial gradient echo, and some of the coronal T2 sequences. 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 Moderate generalized volume loss. These findings were discussed with the [facility] Nurse Elias at approximately 6:30 p.m. with written down and read back verification. Chronic white matter and lesser basal nuclei as well as brainstem ischemic changes. No definite evidence of acute intracranial hemorrhage.
--- NOTE | 2018-07-15 19:07 | CON ---
DATE: 07/15/2018 ORTHOPEDIC CONSULTATION LOCATION: Room 271, bed 2. HISTORY OF PRESENT ILLNESS: The patient was admitted on 07/14/2018 with weakness, syncope and contusion and pain of the right shoulder. 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 She was able to elevate it to 60 degrees with mild rotation, but both with pain, so it totally looks like when she fell prior to admission she probably injured her right shoulder and got a contusion on top of AC joint arthritis and bursitis. The contusion appears worse than what it really is, so we injected the right shoulder with Depo-Medrol and Marcaine to decrease her pain so she could do her therapy to get her extremity stronger so she doesn't fall again. FINAL DIAGNOSES: Contusion of the right shoulder with acromioclavicular joint arthritis and subacromial impingement and it was injected with Depo-Medrol and Marcaine for symptomatic relief. We will send her for physical therapy, and can ambulate with a cane or walker. Aneudy Smith DO
--- NOTE | 2018-07-15 19:46 | CP.PCM.CON ---
History of Present Illness - History of Present Illness History of Present Illness: ICU Consult Note for Dr. Mallory Patient is an 88 yo F with PMH of DM, HTN, and HLD presented to [facility] originally due to lightheadedness, dizziness, and hitting her head while setting up food for the homeless. In the ED, CT head was ordered and was negative. Patient was admitted for dizziness and syncope. During hospital course, patient was primary evaluated by cardiology and neurology for syncope, vertigo, and HTN and was cleared after initial evaluation. However, patient was ataxic during PT evaluation as she kept leaning toward her right. MRI was ordered which showed large right cerebellar infarct. ICU was consulted for acute CVA. Patient denied CP, SOB, n/v/d, abdominal pain, fever, chills, BROWN, or dizziness. PMH: DM, HTN, HLD Surg: Unsure All: NKDA SH: Denied EtOH, tobacco, and illicit drug use FHx: Non-contributory PMD: Dee Review of Systems - Review of Systems All systems: reviewed and no additional remarkable complaints except (12 point ROS reviewed and is negative other than what is stated in HPI.) Past Patient History - Infectious Disease Hx of Infectious Diseases: None - Past Social History Smoking Status: Never Smoked - CARDIAC Hx Hypertension: Yes - PULMONARY Hx Respiratory Disorders: No - NEUROLOGICAL Hx Neurological Disorder: No - HEENT Hx Cataracts: Yes Other/Comment: s/p bilateral cataract surgery. - RENAL Hx Chronic Kidney Disease: No - ENDOCRINE/METABOLIC Hx Diabetes Mellitus Type 2: Yes - HEMATOLOGICAL/ONCOLOGICAL Hx Blood Disorders: No - INTEGUMENTARY Hx Dermatological Problems: No - MUSCULOSKELETAL/RHEUMATOLOGICAL Hx Falls: Yes - GASTROINTESTINAL Hx Gastrointestinal Disorders: No - GENITOURINARY/GYNECOLOGICAL Hx Genitourinary Disorders: No - PSYCHIATRIC Hx Substance Use: No - SURGICAL HISTORY Hx Surgeries: Yes Other/Comment: pt thinks she had hysterectomy and her ovaries removed a long time ago. - ANESTHESIA Hx Anesthesia: No Hx Anesthesia Reactions: No Hx Malignant Hyperthermia: No Meds Allergies/Adverse Reactions: Allergies Allergy/AdvReac Type Severity Reaction Status Date / Time No Known Allergies Allergy Verified 07/12/18 12:57 - Medications Medications: Current Medications Acetaminophen (Tylenol 325mg Tab) 650 mg PO Q6H PRN PRN Reason: Pain, Mild (1-3) Last Admin: 07/14/18 22:30 Dose: 650 mg Apixaban (Eliquis) 5 mg PO BID [facility]; Protocol Last Admin: 07/15/18 19:22 Dose: 5 mg Aspirin (Ecotrin) 81 mg PO DAILY [facility] Last Admin: 07/15/18 09:04 Dose: 81 mg Diltiazem HCl (Cardizem) 30 mg PO TID [facility] Last Admin: 07/15/18 19:22 Dose: 30 mg Hydralazine HCl (Apresoline) 50 mg PO BID [facility] Last Admin: 07/15/18 19:21 Dose: 50 mg Insulin Detemir (Levemir) 20 unit SC DAILY [facility] Last Admin: 07/15/18 09:01 Dose: 20 unit Insulin Human Regular (Humulin R Low) 0 units SC [facility]; Protocol Last Admin: 07/15/18 19:11 Dose: Not Given Lidocaine (Lidoderm) 1 ea TOP DAILY [facility] Last Admin: 07/15/18 09:04 Dose: 1 ea Losartan Potassium (Cozaar) 100 mg PO DAILY [facility] Last Admin: 07/15/18 09:03 Dose: 100 mg Meclizine HCl (Antivert) 25 mg PO BID [facility] Last Admin: 07/15/18 19:22 Dose: Not Given Pantoprazole Sodium (Protonix Ec Tab) 40 mg PO DAILY [facility] Last Admin: 07/15/18 09:03 Dose: 40 mg Sotalol HCl (Betapace) 80 mg PO BID [facility] Last Admin: 07/15/18 19:23 Dose: 80 mg Physical Exam - Constitutional Appears: No Acute Distress - Head Exam Head Exam: NORMAL INSPECTION - Eye Exam Eye Exam: Normal appearance - ENT Exam ENT Exam: Mucous Membranes Moist - Neck Exam Neck exam: Positive for: Normal Inspection - Respiratory Exam Respiratory Exam: Clear to Auscultation Bilateral. absent: Rales, Rhonchi, Wheezes - Cardiovascular Exam Cardiovascular Exam: RRR, +S1, +S2. absent: Diastolic murmur, Gallop, Rubs, Systolic Murmur - GI/Abdominal Exam GI & Abdominal Exam: Soft. absent: Distended, Guarding, Rebound, Tenderness - Back Exam Back exam: NORMAL INSPECTION - Neurological Exam Neurological exam: Abnormal Gait (ataxia, rightward deviation), Alert, CN II-XII Intact, Oriented x3, Reflexes Normal Additional comments: no dysdiadokinesia, proprioception, strength b/l UE and LE 4/5 - Psychiatric Exam Psychiatric exam: Normal Affect - Skin Skin Exam: Dry, Intact, Normal Color, Warm Results - Vital Signs Recent Vital Signs: Last Vital Signs Temp 98 F 07/15/18 18:00 Pulse 78 07/15/18 19:23 Resp 19 07/15/18 18:00 BP 154/79 H 07/15/18 19:23 Pulse Ox 98 07/15/18 06:00 - Labs Result Diagrams: 07/13/18 06:30 07/15/18 12:20 Labs: Laboratory Results - last 24 hr 07/14/18 07/15/18 07/15/18 21:21 07:49 11:40 POC Glucose (mg/dL) 186 H 241 H > 500 H* Random Glucose 07/15/18 07/15/18 07/15/18 11:49 12:20 16:36 POC Glucose (mg/dL) > 500 H* 199 H Random Glucose 256 H Assessment & Plan - Assessment and Plan (Free Text) Assessment: 88 yo F with PMH of HLD, HTN, and DM presents to [facility] due to syncope and fall. Patient was found to have a large right cerebellar infarct. ICU was consulted for monitoring for CVA. Plan: Neuro: - CT head negative - MRI brain showed large right cerebellar infarct - Patient does not qualify for tPA - Maintain SBP < 140 with hydralazine and losartan - Neurology following - Maintain normothermia CV: - Echo showed normal EF, moderate pulm HTN, LVH, IHSS physiology - A-fib noted on telemetry - Cardizem and sotolol for rate control - Eliquis 5 mg BID - BP control: hydralazine and losartan - Cont ASA - Cardiology following - Maintain MAP>65 Pulm: - Maintain O2>92% GI: - Protonix for GI PPx - Heart healthy diet Renal: - Maintain euvolemia - Monitor electrolytes and replete as needed Endo: - Levemir and ISS - Accuchecks ACHS - Maintain euglycemia Heme: - Eliquis covers DVT PPx Patient seen and discussed in detail with Dr. Mallory. Nick Glover, DO PGY
--- NOTE | 2018-07-15 21:09 | PN ---
DATE: 07/15/2018 REASON FOR CONSULTATION AND FOLLOWUP: Admitted with near syncope. Awake and alert. New onset of AFib. IHSS with mild gradient across the aortic valve resting, 36 mm gradient, preserved LV function. SUBJECTIVE: Denies any chest pain, shortness of breath, any palpitation. This note is in addition to dictated by nurse practitioner. RECOMMENDATIONS: Continue aspirin. Continue low-dose beta-locker. Continue losartan. The patient is on sotalol with Dr. Jain. Emphasis made to the patient not to get dehydrated because of the IHSS. Continue beta-ilan. We will follow with you. The patient needs a stress test as outpatient and a full workup. Also, when the patient comes in, may consider de-cardioversion if remains in AFib. Discussed with Dr. Jain who will see in the office in outpatient. Thank you Dr. Price for providing us the opportunity in taking care of the patient, Soila Isidro. Jorge Lemon MD
--- NOTE | 2018-07-16 04:23 | PN ---
DATE: 07/16/2018 SUBJECTIVE: The patient was seen and examined at bedside in the telemetry, still having lightheadedness, dizziness and when she was walking with physical therapy, has some ataxia, falling towards the right side. MRI done showed large right cerebral infarction. ICU evaluated the patient, accepted the patient. I have discussion done with both the patient's daughter and the patient herself. The patient's nurse was on the bedside. PHYSICAL EXAMINATION: VITAL SIGNS: Temperature 98.0, pulse 78, respiratory rate 19, blood pressure 154/79 and pulse oximetry 98%. HEENT: Head; normocephalic. Eyes; PERRLA. Extraocular muscles are intact. Conjunctivae clear. Nose patent. Mucous membrane moist. NECK: Supple. No carotid bruits, JVD, thyromegaly. CHEST: Bilaterally symmetrical. HEART: S1 and S2 positive. LUNGS: Clear to auscultation. ABDOMEN: Soft. Bowel sounds present. No organomegaly. EXTREMITIES: No edema. No cyanosis. NEUROLOGIC: The patient is awake and alert. Follows simple commands. LABORATORY DATA: White blood cell is 5.8, hemoglobin 11.5, hematocrit 33.8 and platelets 182,000. Glucose 256. MEDICATIONS: Tylenol, Eliquis, Ecotrin, Cardizem, Levemir and Antivert. ASSESSMENT AND PLAN: Ms. Soila Isidro 88 years old lady with anemia, diabetes mellitus with hypercholesterolemia [place] [facility] [place] and [place], hitting her head. The patient has a large right cerebral infarction. CT of the head was negative. MRI of the brain shows large right cerebral infarction. Neurologist is on the case. Echo done shows normal ejection fraction. Atrial fibrillation noted on the telemetry, Cardizem, and sotalol added for rate control, Eliquis 5 mg b.i.d. started. For blood pressure control, the patient is on hydralazine and losartan. Continue aspirin. Gastrointestinal and deep venous thrombosis prophylaxes given. Heart healthy diet given. Measure electrolytes and repeat labs. Continue Levemir, Accu-Chek and maintain euglycemic. Gastrointestinal and deep venous thrombosis prophylaxes. Continue present treatment. Repeat labs. We will follow up. Gricel Price MD [facility] # [id number]
[2018-07-16] MEDS: Insulin Reg-LOW-Coverage SC SCH ×4 (08:12→22:39)
[2018-07-16 08:16] LABS: BASO # 0.01 K/mm3 (0.0-2.0); BASO % 0.1 % (0.0-3.0); EOS % 0.1 % (1.5-5.0); GRAN # 5.18 (1.4-6.5); GRAN % 73.5 % (50.0-68.0); HEMOGLOBIN 13.1 g/dL (12.0-16.0); LYMPH # 1.3 (1.2-3.4); LYMPH % 18.4 % (22.0-35.0); MEAN CELL VOLUME 81.3 fl (80.0-105.0); MEAN CORPUSCULAR HEMOGLOBIN 28.2 pg (25.0-35.0); MEAN CORPUSCULAR HGB CONC 34.7 g/dl (31.0-37.0); MEAN PLATELET VOLUME 9.8 fl (7.0-11.0); MONO # 0.6 (0.1-0.6); MONO % 7.9 % (1.0-6.0); RBC 4.65 10^6/uL (3.5-6.1); RED CELL DISTRIBUTION WIDTH 14.9 % (11.5-14.5); WHITE BLOOD COUNT 7.1 10^3/uL (4.5-11.0)
[2018-07-16 08:42] LABS: ALBUMIN 3.7 g/dL (3.0-4.8); CALCIUM 9.3 mg/dL (8.4-10.5)
[2018-07-16] MEDS ORDERED: Magnesium Sulfate 2 gm/50 ml 2 GM/50 ML BAG IVPB ONE (08:50)
[2018-07-16] MEDS: Pantoprazole 40 mg EC Tab PO SCH (09:39)
[2018-07-16] MEDS: Lidocaine 5% Patch TOP SCH (09:39)
[2018-07-16] MEDS: Insulin Detemir 100 units/ml Vial (Levemir) SC SCH (09:41)
--- NOTE | 2018-07-16 10:22 | CP.PCM.PN ---
Subjective - Date & Time of Evaluation Date of Evaluation: 07/16/18 Time of Evaluation: 07:30 Objective - Vital Signs/Intake and Output Vital Signs (last 24 hours): Temp Pulse Resp BP Pulse Ox 98.8 F 102 H 20 132/72 98 07/16/18 00:01 07/16/18 09:40 07/16/18 08:00 07/16/18 09:40 07/16/18 08:00 Intake and Output: 07/16/18 07/16/18 06:59 18:59 Intake Total 400 Output Total 500 Balance -100 - Medications Medications: Current Medications Acetaminophen (Tylenol 325mg Tab) 650 mg PO Q6H PRN PRN Reason: Pain, Mild (1-3) Last Admin: 07/14/18 22:30 Dose: 650 mg Apixaban (Eliquis) 5 mg PO BID [facility]; Protocol Last Admin: 07/16/18 09:40 Dose: 5 mg Aspirin (Ecotrin) 81 mg PO DAILY [facility] Last Admin: 07/16/18 09:39 Dose: 81 mg Atorvastatin Calcium (Lipitor) 10 mg PO DIN [facility] Diltiazem HCl (Cardizem) 30 mg PO TID [facility] Last Admin: 07/16/18 09:40 Dose: 30 mg Hydralazine HCl (Apresoline) 50 mg PO BID [facility] Last Admin: 07/16/18 09:39 Dose: 50 mg Insulin Detemir (Levemir) 20 unit SC DAILY [facility] Last Admin: 07/16/18 09:41 Dose: 20 unit Insulin Human Regular (Humulin R Low) 0 units SC ACHS [facility]; Protocol Last Admin: 07/16/18 08:12 Dose: 2 units Lidocaine (Lidoderm) 1 ea TOP DAILY [facility] Last Admin: 07/16/18 09:39 Dose: 1 ea Losartan Potassium (Cozaar) 100 mg PO DAILY [facility] Last Admin: 07/16/18 09:40 Dose: 100 mg Meclizine HCl (Antivert) 25 mg PO BID [facility] Last Admin: 07/16/18 09:39 Dose: 25 mg Pantoprazole Sodium (Protonix Ec Tab) 40 mg PO DAILY [facility] Last Admin: 07/16/18 09:39 Dose: 40 mg Sotalol HCl (Betapace) 80 mg PO BID [facility] Last Admin: 07/16/18 09:39 Dose: 80 mg - Labs Labs: 07/16/18 08:10 07/16/18 08:10 PT 13.9 SECONDS (9.4-12.5) H 07/13/18 16:54 INR 1.21 07/13/18 16:54 APTT 27.4 Seconds (25.1-36.5) 07/13/18 16:54
--- NOTE | 2018-07-16 10:24 | CP.CCUPN ---
<Yasir Alejandro - Last Filed: 07/16/18 12:36> CCU Subjective - Physician Review Subjective (Free Text): ICU Consult Note for Dr. Holder Patient is seen and examined at bedside. No acute events overnight. She denied chest pain, palpitations, fever, chills, focal weakness or loss of sensation CCU Objective - Vital Signs / Intake & Output Vital Signs (Last 4 hours): Vital Signs Pulse Resp BP Pulse Ox 07/16/18 09:40 102 H 132/72 07/16/18 09:39 102 H 132/72 07/16/18 08:00 92 H 20 153/86 H 98 07/16/18 07:00 91 H 12 122/72 96 Intake and Output (Last 8hrs): Intake & Output 07/15/18 07/16/18 07/16/18 22:59 06:59 14:59 Intake Total 400 Output Total 500 Balance -100 Intake: Oral 400 Output: Urine 500 Urine, Voided 500 Other: # Bowel Movements 0 - Physical Exam Head: Positive for: Atraumatic, Normocephalic. Negative for: Abrasion Pupils: Positive for: PERRL. Negative for: Sluggish Extroacular Muscles: Positive for: EOMI. Negative for: Gaze Palsy Conjunctiva: Positive for: Normal, Other (mild echymosis around right eye, no open wound, no discharge) Mouth: Positive for: Moist Mucous Membranes. Negative for: Dry, Normal Teeth Pharnyx: Positive for: Normal. Negative for: ERYTHEMA, Uvular Deviation Neck: Positive for: Normal Range of Motion. Negative for: Meningeal Signs, JVD Respiratory/Chest: Positive for: Clear to Auscultation, Good Air Exchange. Negative for: Wheezes Cardiovascular: Positive for: Irregular Rhythm. Negative for: Tachycardic Abdomen: Positive for: Normal Bowel Sounds. Negative for: Tenderness, Distention, McBurney's Point Tender Upper Extremity: Positive for: Other (limited ROM in right shoulder. no erythema, swelling or signs of infection). Negative for: Cyanosis, Edema, Erythema Lower Extremity: Positive for: Normal Inspection. Negative for: Edema Neurological: Positive for: CN II-XII Intact, Speech Normal. Negative for: Normal Cerebellar Funct Skin: Positive for: Dry, Normal Color. Negative for: Cold Psychiatric: Positive for: Oriented x 3, Normal Insight. Negative for: Normal Mood, Homicidal Ideation - Medications Active Medications: Active Medications Generic Name Dose Route Start Last Admin Trade Name Freq PRN Reason Stop Dose Admin Acetaminophen 650 mg 07/13/18 12:45 07/14/18 22:30 Tylenol 325mg Tab PO 650 mg Q6H PRN Administration Pain, Mild (1-3) Apixaban 5 mg 07/13/18 18:00 07/16/18 09:40 Eliquis PO 5 mg BID KD Administration Protocol Aspirin 81 mg 07/13/18 10:00 07/16/18 09:39 Ecotrin PO 81 mg DAILY KD Administration Atorvastatin Calcium 10 mg 07/16/18 17:00 Lipitor PO DIN KD Diltiazem HCl 30 mg 07/14/18 14:00 07/16/18 09:40 Cardizem PO 30 mg TID KD Administration Hydralazine HCl 50 mg 07/12/18 18:45 07/16/18 09:39 Apresoline PO 50 mg BID KD Administration Insulin Detemir 20 unit 07/13/18 10:00 07/16/18 09:41 Levemir SC 20 unit DAILY KD Administration Insulin Human Regular 0 units 07/12/18 22:00 07/16/18 08:12 Humulin R Low SC 2 units ACHS KD Administration Protocol Lidocaine 1 ea 07/14/18 10:00 07/16/18 09:39 Lidoderm TOP 1 ea DAILY KD Administration Losartan Potassium 100 mg 07/13/18 10:00 07/16/18 09:40 Cozaar PO 100 mg DAILY KD Administration Meclizine HCl 25 mg 07/15/18 18:00 07/16/18 09:39 Antivert PO 25 mg BID KD Administration Pantoprazole Sodium 40 mg 07/13/18 14:15 07/16/18 09:39 Protonix Ec Tab PO 40 mg DAILY KD Administration Sotalol HCl 80 mg 07/14/18 18:00 07/16/18 09:39 Betapace PO 80 mg BID KD Administration - Patient Studies Lab Studies: Lab Studies 07/16/18 07/16/18 07/15/18 Range/Units 08:10 08:10 23:24 WBC 7.1 D (4.5-11.0) 10^3/uL RBC 4.65 (3.5-6.1) 10^6/uL Hgb 13.1 (12.0-16.0) g/dL Hct 37.8 (36.0-48.0) % MCV 81.3 (80.0-105.0) fl MCH 28.2 (25.0-35.0) pg MCHC 34.7 (31.0-37.0) g/dl RDW 14.9 H (11.5-14.5) % Plt Count 210 (120.0-450.0) 10^3/uL MPV 9.8 (7.0-11.0) fl Gran % 73.5 H (50.0-68.0) % Lymph % (Auto) 18.4 L (22.0-35.0) % Webster % (Auto) 7.9 H (1.0-6.0) % Eos % (Auto) 0.1 L (1.5-5.0) % Baso % (Auto) 0.1 (0.0-3.0) % Gran # 5.18 (1.4-6.5) Lymph # (Auto) 1.3 (1.2-3.4) Webster # (Auto) 0.6 (0.1-0.6) Eos # (Auto) 0.0 (0.0-0.7) Baso # (Auto) 0.01 (0.0-2.0) K/mm3 Sodium 134 (132-148) mmol/L Potassium 4.5 (3.6-5.0) mmol/L Chloride 102 (98-107) mmol/L Carbon Dioxide 25 (21-33) mmol/L Anion Gap 12 (10-20) BUN 22 H (7-21) mg/dL Creatinine 1.1 (0.7-1.2) mg/dl Est GFR ( Amer) 57 Est GFR (Non-Af Amer) 47 POC Glucose (mg/dL) 194 H (65-110) mg/dL Random Glucose 197 H (70-110) mg/dL Calcium 9.3 (8.4-10.5) mg/dL Phosphorus 4.4 (2.5-4.5) mg/dL Magnesium 1.6 L (1.7-2.2) mg/dL Total Bilirubin 0.6 (0.2-1.3) mg/dL AST 29 (14-36) U/L ALT 24 (7-56) U/L Alkaline Phosphatase 86 (38-126) U/L Total Protein 7.3 (5.8-8.3) g/dL Albumin 3.7 (3.0-4.8) g/dL Globulin 3.6 gm/dL Albumin/Globulin Ratio 1.0 L (1.1-1.8) 07/15/18 07/15/18 07/15/18 Range/Units 18:57 16:36 12:20 WBC (4.5-11.0) 10^3/uL RBC (3.5-6.1) 10^6/uL Hgb (12.0-16.0) g/dL Hct (36.0-48.0) % MCV (80.0-105.0) fl MCH (25.0-35.0) pg MCHC (31.0-37.0) g/dl RDW (11.5-14.5) % Plt Count (120.0-450.0) 10^3/uL MPV (7.0-11.0) fl Gran % (50.0-68.0) % Lymph % (Auto) (22.0-35.0) % Webster % (Auto) (1.0-6.0) % Eos % (Auto) (1.5-5.0) % Baso % (Auto) (0.0-3.0) % Gran # (1.4-6.5) Lymph # (Auto) (1.2-3.4) Webster # (Auto) (0.1-0.6) Eos # (Auto) (0.0-0.7) Baso # (Auto) (0.0-2.0) K/mm3 Sodium (132-148) mmol/L Potassium (3.6-5.0) mmol/L Chloride (98-107) mmol/L Carbon Dioxide (21-33) mmol/L Anion Gap (10-20) BUN (7-21) mg/dL Creatinine (0.7-1.2) mg/dl Est GFR ( Amer) Est GFR (Non-Af Amer) POC Glucose (mg/dL) 148 H 199 H (65-110) mg/dL Random Glucose 256 H (70-110) mg/dL Calcium (8.4-10.5) mg/dL Phosphorus (2.5-4.5) mg/dL Magnesium (1.7-2.2) mg/dL Total Bilirubin (0.2-1.3) mg/dL AST (14-36) U/L ALT (7-56) U/L Alkaline Phosphatase (38-126) U/L Total Protein (5.8-8.3) g/dL Albumin (3.0-4.8) g/dL Globulin gm/dL Albumin/Globulin Ratio (1.1-1.8) 07/15/18 07/15/18 Range/Units 11:49 11:40 WBC (4.5-11.0) 10^3/uL RBC (3.5-6.1) 10^6/uL Hgb (12.0-16.0) g/dL Hct (36.0-48.0) % MCV (80.0-105.0) fl MCH (25.0-35.0) pg MCHC (31.0-37.0) g/dl RDW (11.5-14.5) % Plt Count (120.0-450.0) 10^3/uL MPV (7.0-11.0) fl Gran % (50.0-68.0) % Lymph % (Auto) (22.0-35.0) % Webster % (Auto) (1.0-6.0) % Eos % (Auto) (1.5-5.0) % Baso % (Auto) (0.0-3.0) % Gran # (1.4-6.5) Lymph # (Auto) (1.2-3.4) Webster # (Auto) (0.1-0.6) Eos # (Auto) (0.0-0.7) Baso # (Auto) (0.0-2.0) K/mm3 Sodium (132-148) mmol/L Potassium (3.6-5.0) mmol/L Chloride (98-107) mmol/L Carbon Dioxide (21-33) mmol/L Anion Gap (10-20) BUN (7-21) mg/dL Creatinine (0.7-1.2) mg/dl Est GFR ( Amer) Est GFR (Non-Af Amer) POC Glucose (mg/dL) > 500 H* > 500 H* (65-110) mg/dL Random Glucose (70-110) mg/dL Calcium (8.4-10.5) mg/dL Phosphorus (2.5-4.5) mg/dL Magnesium (1.7-2.2) mg/dL Total Bilirubin (0.2-1.3) mg/dL AST (14-36) U/L ALT (7-56) U/L Alkaline Phosphatase (38-126) U/L Total Protein (5.8-8.3) g/dL Albumin (3.0-4.8) g/dL Globulin gm/dL Albumin/Globulin Ratio (1.1-1.8) Laboratory Results - last 24 hr 07/15/18 07/15/18 07/15/18 11:40 11:49 12:20 WBC RBC Hgb Hct MCV MCH MCHC RDW Plt Count MPV Gran % Lymph % (Auto) Webster % (Auto) Eos % (Auto) Baso % (Auto) Gran # Lymph # (Auto) Webster # (Auto) Eos # (Auto) Baso # (Auto) Sodium Potassium Chloride Carbon Dioxide Anion Gap BUN Creatinine Est GFR ( Amer) Est GFR (Non-Af Amer) POC Glucose (mg/dL) > 500 H* > 500 H* Random Glucose 256 H Calcium Phosphorus Magnesium Total Bilirubin AST ALT Alkaline Phosphatase Total Protein Albumin Globulin Albumin/Globulin Ratio 07/15/18 07/15/18 07/15/18 16:36 18:57 23:24 WBC RBC Hgb Hct MCV MCH MCHC RDW Plt Count MPV Gran % Lymph % (Auto) Webster % (Auto) Eos % (Auto) Baso % (Auto) Gran # Lymph # (Auto) Webster # (Auto) Eos # (Auto) Baso # (Auto) Sodium Potassium Chloride Carbon Dioxide Anion Gap BUN Creatinine Est GFR ( Amer) Est GFR (Non-Af Amer) POC Glucose (mg/dL) 199 H 148 H 194 H Random Glucose Calcium Phosphorus Magnesium Total Bilirubin AST ALT Alkaline Phosphatase Total Protein Albumin Globulin Albumin/Globulin Ratio 07/16/18 07/16/18 08:10 08:10 WBC 7.1 D RBC 4.65 Hgb 13.1 Hct 37.8 MCV 81.3 MCH 28.2 MCHC 34.7 RDW 14.9 H Plt Count 210 MPV 9.8 Gran % 73.5 H Lymph % (Auto) 18.4 L Webster % (Auto) 7.9 H Eos % (Auto) 0.1 L Baso % (Auto) 0.1 Gran # 5.18 Lymph # (Auto) 1.3 Webster # (Auto) 0.6 Eos # (Auto) 0.0 Baso # (Auto) 0.01 Sodium 134 Potassium 4.5 Chloride 102 Carbon Dioxide 25 Anion Gap 12 BUN 22 H Creatinine 1.1 Est GFR ( Amer) 57 Est GFR (Non-Af Amer) 47 POC Glucose (mg/dL) Random Glucose 197 H Calcium 9.3 Phosphorus 4.4 Magnesium 1.6 L Total Bilirubin 0.6 AST 29 ALT 24 Alkaline Phosphatase 86 Total Protein 7.3 Albumin 3.7 Globulin 3.6 Albumin/Globulin Ratio 1.0 L Fingerstick Blood Sugar Results: 228 Critical Care Progress Note - Nutrition Nutrition: Nutrition Category Date Time Status Heart Healthy Diet [DIET] Diets 07/12/18 Dinner Active Assessment/Plan - Assessment and Plan (Free Text) Assessment: 88 yo F with PMH of HLD, HTN, DM, anemia admitted for syncope work up. 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 Patient is clinically stable Plan: Neuro: - No motor or sensory deficits - CT head: negative - MRI brain: large right cerebellar infarct - Maintain SBP < 140 with hydralazine and losartan - Neurology consulted CV: - Echo: EF 57%, pHTN, LVH, IHSS - Carotid U/S - BP control: hydralazine and losartan - A-fib on telemetry - Continue Cardizem and Sotolol for rate control - Continue Eliquis 5 mg BID - Continue ASA - Cardiology consulted (Dr Lemon): continue BB, ASA, Eliquis. outpatient f/u - Maintain MAP>65 MSK: - Right shoulder limited ROM likely due to acromioclavicular joint arthritis and impingement - Orthopedics consulted (Dr Garcia): steriod injection given, PT, ambulate with cane Renal: - Maintain euvolemia - Monitor electrolytes and replete as needed - Purewick external catheter in place - In/out 1900/850 in last 24 hours Endo: - Levemir and ISS - Accuchecks ACHS - Maintain euglycemia Heme: -h/o anemia -H/H stable Prophylaxis: - DVT PPx: Eliquis - GI PPx: Protonix Patient seen and discussed in detail with attending Dr. Glory Alejandro, DO, PGY1 <Blaise Holder - Last Filed: 07/16/18 17:35> CCU Objective - Vital Signs / Intake & Output Vital Signs (Last 4 hours): Vital Signs Pulse Resp BP Pulse Ox 07/16/18 17:21 74 07/16/18 17:11 84 125/65 07/16/18 14:30 75 19 77 L 07/16/18 14:01 80 19 104/66 83 L 07/16/18 14:00 84 18 80 L 07/16/18 13:49 93 H 127/62 Intake and Output (Last 8hrs): Intake & Output 07/16/18 07/16/18 07/16/18 06:59 14:59 22:59 Intake Total 400 Output Total 500 Balance -100 Intake: Oral 400 Output: Urine 500 Urine, Voided 500 Other: # Bowel Movements 0 - Medications Active Medications: Active Medications Generic Name Dose Route Start Last Admin Trade Name Freq PRN Reason Stop Dose Admin Acetaminophen 650 mg 07/13/18 12:45 07/14/18 22:30 Tylenol 325mg Tab PO 650 mg Q6H PRN Administration Pain, Mild (1-3) Apixaban 5 mg 07/13/18 18:00 07/16/18 17:11 Eliquis PO 5 mg BID KD Administration Protocol Aspirin 81 mg 07/13/18 10:00 07/16/18 09:39 Ecotrin PO 81 mg DAILY KD Administration Atorvastatin Calcium 10 mg 07/16/18 17:00 07/16/18 17:13 Lipitor PO 10 mg DIN KD Administration Diltiazem HCl 30 mg 07/14/18 14:00 07/16/18 17:11 Cardizem PO 30 mg TID KD Administration Hydralazine HCl 50 mg 07/12/18 18:45 07/16/18 17:11 Apresoline PO 50 mg BID KD Administration Insulin Detemir 20 unit 07/13/18 10:00 07/16/18 09:41 Levemir SC 20 unit DAILY KD Administration Insulin Human Regular 0 units 07/12/18 22:00 07/16/18 17:01 Humulin R Low SC 3 units ACHS KD Administration Protocol Lidocaine 1 ea 07/14/18 10:00 07/16/18 09:39 Lidoderm TOP 1 ea DAILY KD Administration Losartan Potassium 100 mg 07/13/18 10:00 07/16/18 09:40 Cozaar PO 100 mg DAILY KD Administration Meclizine HCl 25 mg 07/15/18 18:00 07/16/18 17:10 Antivert PO 25 mg BID KD Administration Pantoprazole Sodium 40 mg 07/13/18 14:15 07/16/18 09:39 Protonix Ec Tab PO 40 mg DAILY KD Administration Sotalol HCl 80 mg 07/14/18 18:00 07/16/18 17:11 Betapace PO 80 mg BID KD Administration - Patient Studies Lab Studies: Lab Studies 07/16/18 07/16/18 07/16/18 Range/Units 16:13 11:46 08:10 WBC 7.1 D (4.5-11.0) 10^3/uL RBC 4.65 (3.5-6.1) 10^6/uL Hgb 13.1 (12.0-16.0) g/dL Hct 37.8 (36.0-48.0) % MCV 81.3 (80.0-105.0) fl MCH 28.2 (25.0-35.0) pg MCHC 34.7 (31.0-37.0) g/dl RDW 14.9 H (11.5-14.5) % Plt Count 210 (120.0-450.0) 10^3/uL MPV 9.8 (7.0-11.0) fl Gran % 73.5 H (50.0-68.0) % Lymph % (Auto) 18.4 L (22.0-35.0) % Webster % (Auto) 7.9 H (1.0-6.0) % Eos % (Auto) 0.1 L (1.5-5.0) % Baso % (Auto) 0.1 (0.0-3.0) % Gran # 5.18 (1.4-6.5) Lymph # (Auto) 1.3 (1.2-3.4) Webster # (Auto) 0.6 (0.1-0.6) Eos # (Auto) 0.0 (0.0-0.7) Baso # (Auto) 0.01 (0.0-2.0) K/mm3 Sodium (132-148) mmol/L Potassium (3.6-5.0) mmol/L Chloride (98-107) mmol/L Carbon Dioxide (21-33) mmol/L Anion Gap (10-20) BUN (7-21) mg/dL Creatinine (0.7-1.2) mg/dl Est GFR ( Amer) Est GFR (Non-Af Amer) POC Glucose (mg/dL) 268 H 298 H (65-110) mg/dL Random Glucose (70-110) mg/dL Calcium (8.4-10.5) mg/dL Phosphorus (2.5-4.5) mg/dL Magnesium (1.7-2.2) mg/dL Total Bilirubin (0.2-1.3) mg/dL AST (14-36) U/L ALT (7-56) U/L Alkaline Phosphatase (38-126) U/L Total Protein (5.8-8.3) g/dL Albumin (3.0-4.8) g/dL Globulin gm/dL Albumin/Globulin Ratio (1.1-1.8) Triglycerides (35-160) mg/dL Cholesterol (130-200) mg/dL LDL Cholesterol Direct (0-129) mg/dL HDL Cholesterol (29-60) mg/dL 07/16/18 07/16/18 07/16/18 Range/Units 08:10 08:00 07:41 WBC (4.5-11.0) 10^3/uL RBC (3.5-6.1) 10^6/uL Hgb (12.0-16.0) g/dL Hct (36.0-48.0) % MCV (80.0-105.0) fl MCH (25.0-35.0) pg MCHC (31.0-37.0) g/dl RDW (11.5-14.5) % Plt Count (120.0-450.0) 10^3/uL MPV (7.0-11.0) fl Gran % (50.0-68.0) % Lymph % (Auto) (22.0-35.0) % Webster % (Auto) (1.0-6.0) % Eos % (Auto) (1.5-5.0) % Baso % (Auto) (0.0-3.0) % Gran # (1.4-6.5) Lymph # (Auto) (1.2-3.4) Webster # (Auto) (0.1-0.6) Eos # (Auto) (0.0-0.7) Baso # (Auto) (0.0-2.0) K/mm3 Sodium 134 (132-148) mmol/L Potassium 4.5 (3.6-5.0) mmol/L Chloride 102 (98-107) mmol/L Carbon Dioxide 25 (21-33) mmol/L Anion Gap 12 (10-20) BUN 22 H (7-21) mg/dL Creatinine 1.1 (0.7-1.2) mg/dl Est GFR ( Amer) 57 Est GFR (Non-Af Amer) 47 POC Glucose (mg/dL) 228 H (65-110) mg/dL Random Glucose 197 H (70-110) mg/dL Calcium 9.3 (8.4-10.5) mg/dL Phosphorus 4.4 (2.5-4.5) mg/dL Magnesium 1.6 L (1.7-2.2) mg/dL Total Bilirubin 0.6 (0.2-1.3) mg/dL AST 29 (14-36) U/L ALT 24 (7-56) U/L Alkaline Phosphatase 86 (38-126) U/L Total Protein 7.3 (5.8-8.3) g/dL Albumin 3.7 (3.0-4.8) g/dL Globulin 3.6 gm/dL Albumin/Globulin Ratio 1.0 L (1.1-1.8) Triglycerides 80 (35-160) mg/dL Cholesterol 202 H (130-200) mg/dL LDL Cholesterol Direct 108 (0-129) mg/dL HDL Cholesterol 71 H (29-60) mg/dL 07/15/18 07/15/18 07/15/18 Range/Units 23:24 18:57 16:36 WBC (4.5-11.0) 10^3/uL RBC (3.5-6.1) 10^6/uL Hgb (12.0-16.0) g/dL Hct (36.0-48.0) % MCV (80.0-105.0) fl MCH (25.0-35.0) pg MCHC (31.0-37.0) g/dl RDW (11.5-14.5) % Plt Count (120.0-450.0) 10^3/uL MPV (7.0-11.0) fl Gran % (50.0-68.0) % Lymph % (Auto) (22.0-35.0) % Webster % (Auto) (1.0-6.0) % Eos % (Auto) (1.5-5.0) % Baso % (Auto) (0.0-3.0) % Gran # (1.4-6.5) Lymph # (Auto) (1.2-3.4) Webster # (Auto) (0.1-0.6) Eos # (Auto) (0.0-0.7) Baso # (Auto) (0.0-2.0) K/mm3 Sodium (132-148) mmol/L Potassium (3.6-5.0) mmol/L Chloride (98-107) mmol/L Carbon Dioxide (21-33) mmol/L Anion Gap (10-20) BUN (7-21) mg/dL Creatinine (0.7-1.2) mg/dl Est GFR ( Amer) Est GFR (Non-Af Amer) POC Glucose (mg/dL) 194 H 148 H 199 H (65-110) mg/dL Random Glucose (70-110) mg/dL Calcium (8.4-10.5) mg/dL Phosphorus (2.5-4.5) mg/dL Magnesium (1.7-2.2) mg/dL Total Bilirubin (0.2-1.3) mg/dL AST (14-36) U/L ALT (7-56) U/L Alkaline Phosphatase (38-126) U/L Total Protein (5.8-8.3) g/dL Albumin (3.0-4.8) g/dL Globulin gm/dL Albumin/Globulin Ratio (1.1-1.8) Triglycerides (35-160) mg/dL Cholesterol (130-200) mg/dL LDL Cholesterol Direct (0-129) mg/dL HDL Cholesterol (29-60) mg/dL Laboratory Results - last 24 hr 07/15/18 07/15/18 07/15/18 16:36 18:57 23:24 WBC RBC Hgb Hct MCV MCH MCHC RDW Plt Count MPV Gran % Lymph % (Auto) Webster % (Auto) Eos % (Auto) Baso % (Auto) Gran # Lymph # (Auto) Webster # (Auto) Eos # (Auto) Baso # (Auto) Sodium Potassium Chloride Carbon Dioxide Anion Gap BUN Creatinine Est GFR ( Amer) Est GFR (Non-Af Amer) POC Glucose (mg/dL) 199 H 148 H 194 H Random Glucose Calcium Phosphorus Magnesium Total Bilirubin AST ALT Alkaline Phosphatase Total Protein Albumin Globulin Albumin/Globulin Ratio Triglycerides Cholesterol LDL Cholesterol Direct HDL Cholesterol 07/16/18 07/16/18 07/16/18 07:41 08:00 08:10 WBC RBC Hgb Hct MCV MCH MCHC RDW Plt Count MPV Gran % Lymph % (Auto) Webster % (Auto) Eos % (Auto) Baso % (Auto) Gran # Lymph # (Auto) Webster # (Auto) Eos # (Auto) Baso # (Auto) Sodium 134 Potassium 4.5 Chloride 102 Carbon Dioxide 25 Anion Gap 12 BUN 22 H Creatinine 1.1 Est GFR ( Amer) 57 Est GFR (Non-Af Amer) 47 POC Glucose (mg/dL) 228 H Random Glucose 197 H Calcium 9.3 Phosphorus 4.4 Magnesium 1.6 L Total Bilirubin 0.6 AST 29 ALT 24 Alkaline Phosphatase 86 Total Protein 7.3 Albumin 3.7 Globulin 3.6 Albumin/Globulin Ratio 1.0 L Triglycerides 80 Cholesterol 202 H LDL Cholesterol Direct 108 HDL Cholesterol 71 H 07/16/18 07/16/18 07/16/18 08:10 11:46 16:13 WBC 7.1 D RBC 4.65 Hgb 13.1 Hct 37.8 MCV 81.3 MCH 28.2 MCHC 34.7 RDW 14.9 H Plt Count 210 MPV 9.8 Gran % 73.5 H Lymph % (Auto) 18.4 L Webster % (Auto) 7.9 H Eos % (Auto) 0.1 L Baso % (Auto) 0.1 Gran # 5.18 Lymph # (Auto) 1.3 Webster # (Auto) 0.6 Eos # (Auto) 0.0 Baso # (Auto) 0.01 Sodium Potassium Chloride Carbon Dioxide Anion Gap BUN Creatinine Est GFR ( Amer) Est GFR (Non-Af Amer) POC Glucose (mg/dL) 298 H 268 H Random Glucose Calcium Phosphorus Magnesium Total Bilirubin AST ALT Alkaline Phosphatase Total Protein Albumin Globulin Albumin/Globulin Ratio Triglycerides Cholesterol LDL Cholesterol Direct HDL Cholesterol Critical Care Progress Note - Nutrition Nutrition: Nutrition Category Date Time Status Heart Healthy Diet [DIET] Diets 07/12/18 Dinner Active Attending/Attestation - Attestation I have personally seen and examined this patient.: Yes I have fully participated in the care of the patient.: Yes I have reviewed all pertinent clinical information: Yes Notes (Text): 07/16/18 17:[address] Holder note
[2018-07-16 10:59] LABS: HDL CHOLESTEROL 71 mg/dL (29-60)
--- NOTE | 2018-07-16 11:01 | PN ---
DATE: 07/16/2018 REASON FOR CONSULTATION: Cardiac evaluation; admitted with near syncope; AFib; IHSS, mild gradient 36 mm across LVOT; CVA. BRIEF CLINICAL HISTORY: This is an 88-year-old female with past medical history of hypertension and hyperlipidemia admitted after having a syncopal episode while she was setting up a jolley for homeless. She felt dizzy and she fell down and hit her head. Initial CAT scan is negative. Yesterday, the patient had ataxia, got discharged when having physical therapy. MRI done shows a large cerebellar infarct, moved to ICU. Currently, in ICU 128, bed 5. Again, she denies any chest pain, shortness of breath, any palpitation except mild weakness of right upper extremity. SUBJECTIVE: Denies any chest pain, shortness of breath, any palpitation. Complained of mild weakness of right upper extremity. OBJECTIVE: The patient is lying flat in the bed in room 128, bed 5. No chest pain. No shortness of breath. No palpitation. No complaints. PHYSICAL EXAMINATION: VITAL SIGNS: Temperature afebrile, heart rate 92 and blood pressure 122/72. HEENT: PERRLA. Extraocular muscles intact. NECK: Supple. No carotid bruit or thyromegaly. CHEST: Clear to auscultation. HEART: S1, S2 regular. ABDOMEN: Soft. EXTREMITIES: Clubbing and cyanosis negative. LABORATORY DATA: WBC 7.1, hemoglobin 13.1, hematocrit 38.8, platelet count 210,000. Chemistry shows sodium 134, potassium 4.5, chloride 102, carbon dioxide 25, anion gap of 12, BUN 22 and creatinine 1.1. Total protein 7.3, albumin 3.7, albumin-globulin ratio of 1.0 and magnesium 1.6. IMPRESSION: An 88-year-old female with a past medical history of diabetes, hypertension and hyperlipidemia, initially admitted to [facility] on 07/14/2018 after having a syncopal episode while the patient was setting up food and jolley for homeless persons, started feeling her head as spinning and then she fell down and hit her head. While the patient was having yesterday physical therapy, got more ataxic and leaning towards the right side. A stat MRI was done that showed a large cerebellar infarct. The patient moved to ICU for acute cerebrovascular accident. Denies any chest pain except feeling of little weakness of right upper extremity, power in both lower extremities is normal. 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 Currently, the patient is on anticoagulation and sotalol 80 mg twice a day and Cardizem 30 mg. For uncontrolled hypertension, the patient is also on the losartan. RECOMMENDATIONS: Continue current medications, Neuro followup; because of acute stroke if the Neuro thinks that the patient needs to hold anticoagulation, it can be held. Otherwise, we will continue Eliquis, continue therapy. For risk stratification, consider stress test in 4-6 days as outpatient. We will discuss with Dr. Price. We will supplement magnesium. Thank you Dr. Price for providing us the opportunity in taking care of the patient, Soila Isidro. Jorge Lemon MD
[2018-07-16 11:10] LABS: LDL CHOLESTEROL 108 mg/dL (0-129)
--- NOTE | 2018-07-16 18:32 | PN ---
DATE: 07/16/2018 CHIEF COMPLAINT: Status post leaning towards the right and dizziness. SUBJECTIVE: The patient was seen and examined at the bedside. 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 On [id number] on the right, there is some plus point and has diffuse cerebellar signs on the right on neuro examination. She is currently in the ICU being monitored since it is a cerebellar stroke. She is currently on Eliquis 5 mg p.o. b.i.d. and aspirin 81 mg and Lipitor 10 mg for stroke prevention. Would recommend to increase the Lipitor to 40 mg p.o. at h.s. PAST MEDICAL HISTORY: History of diabetes, hypertension and anemia. FAMILY HISTORY: Noncontributory. SOCIAL HISTORY: No illicit drug use, smoking, or EtOH abuse. MEDICATIONS: Reviewed by nurses' reconciliation sheet. ALLERGIES: NO KNOWN DRUG ALLERGIES. REVIEW OF SYSTEMS: A 14-point review of systems is negative except as per the HPI. PHYSICAL EXAMINATION: VITAL SIGNS: Temperature afebrile, pulse rate of 84, blood pressure 125/86, respiratory rate 19, and oxygen saturation 80% via nasal cannula. GENERAL: The patient is sitting up in bed, in no acute distress. HEENT: Atraumatic, normocephalic. PERRLA. Extraocular muscles intact. NECK: Supple. No JVD. No adenopathy noted. LUNGS: Clear to auscultation. No adventitious sounds. HEART: S1 and S2. Normal rate and rhythm. No murmurs, rubs or gallops. ABDOMEN: Soft, nontender and nondistended. Bowel sounds are present. EXTREMITIES: No clubbing. No cyanosis. Peripheral pulses 2+ felt bilaterally. NEUROLOGIC: The patient is alert and oriented to person, place, month, and year. Speech is fluent without any errors. There is some mild dysarthria. No aphasia noted. Cranial nerves II through XII are intact. Motor Exam: Moves all extremities equally. No pronator drift seen. Sensory Exam: Decreased light touch and pinprick up to the calves bilaterally. Decreased vibration of the toes. DTRs are 2+ throughout, 1 at both knees and ankles. Coordination: There is dysmetria from finger to nose on the right from acute cerebellar stroke. [id number] is dysmetric as well on the right. Left side is intact. Toes are upgoing bilaterally. Gait is deferred for now. LABORATORY DATA: Sodium is 134, potassium 4.5, chloride 102, carbon dioxide 25, BUN of 22, creatinine of 1.1, random glucose 197. ASSESSMENT: This is an 88-year-old woman with a history of hyperlipidemia, hypertension, diabetes, admitted for a syncopal workup and had a vasovagal event and some vertigo, but during her hospital stay had hyperglycemic accelerations, which developed into a large acute right cerebellar infarct, currently in the ICU being monitored for acute right cerebellar infarct secondary to uncontrolled risk factors, hypertension and diabetes, causing diffuse atherosclerotic disease. PLAN: 1. At this time, I would recommend aspirin 81, Lipitor 40 and Eliquis 2.5 mg p.o. b.i.d. for stroke prevention. 2. Monitor blood sugars and avoid hyperglycemia accelerations. Keep blood sugars between 140 to 180. 3. Keep systolic blood pressure 130s-140s, diastolic 70s-80s. 4. PT/OT and we will recommend acute rehab. Luis Richter MD
--- NOTE | 2018-07-16 19:34 | CON ---
DATE: 07/16/2018 HISTORY OF PRESENT ILLNESS: Ms. Isidro is an 88-year-old lady with history of diabetes mellitus, hypertension, hypercholesterolemia who presented to [facility] ER four days ago with lightheadedness, dizziness and fall. She hit her head during the fall and also had acute pain in her right shoulder. During her hospital stay,she had CAT scan of the head which was unremarkable and multiple imaging of right shoulder also did not reveal any fracture. Dr. Smith was consulted and injection of steroids and anesthetic was made to the right shoulder with substantial relief. Echocardiogram also revealed a left ventricular diastolic dysfunction with significant pulmonary hypertension (RVSP). Dr. Lemon was consulted and BO inhibitors as well as beta-blockers were started. The patient was doing relatively well; however, started to complain on wobbling when walking in the hospital. Repeated MRI of the brain showed cerebellar infarct which was not seen on CAT scan. The patient was transferred to ICU for further management and monitoring.. The blood pressure remains stable at 130 systolic. She is alert, awake, following commands, comfortably sitting in the chair. PAST MEDICAL HISTORY: Diabetes mellitus, hypertension, hypercholesterolemia. ALLERGIES: NKDA. FAMILY HISTORY: Noncontributory. SOCIAL HISTORY: No alcohol or illicit drug abuse. No tobacco smoking. CURRENT MEDICATIONS: Tylenol p.r.n., Eliquis, aspirin, Lipitor, Cardizem, hydralazine, Levemir, regular insulin sliding scale low protocol, Cozaar, Antivert Protonix, sotalol 80 mg p.o. b.i.d. REVIEW OF SYSTEMS: Review of 12-organ system other than mentioned in history of present illness is negative. PHYSICAL EXAMINATION: VITAL SIGNS: Blood pressure 132/72, heart rate 102, respiratory 20, oxygen saturation 98% on room air, temperature 98.8. ENT: Head and neck atraumatic. LUNGS: Clear to auscultation bilaterally. HEART: Regular rate and rhythm. S1 and S2 normal. ABDOMEN: Soft, nontender, nondistended. MUSCULOSKELETAL: Trace bilateral pedal and ankle edema. NEUROLOGIC: Motor strength 5/5 on both sides upper and lower extremities. No gross cranial nerve dysfunction as well. The patient is sitting in the chair. SKIN: Moist. PSYCHIATRY: The patient is alert, awake and oriented x3. LABORATORY DATA: WBC 7.1, hemoglobin 13.1, platelet count 210. Sodium 134, potassium 4.5, chloride 102, carbon dioxide 25, BUN 22, creatinine 1.1, glucose 197, AST 29, ALT 24, total bilirubin 0.6. INR 1.21. Brain MRI from yesterday showed very limited study due to significant instability artifact which obscures the left cerebellum, most of the left temporal lobe as well as all the occipital pole and left posterior temporoparietal watershed zone on the axial diffusion, large acute infarct right cerebellar hemisphere with involvement of the right parasagittal and vermin area. Moderate generalized volume loss. ASSESSMENT AND PLAN: This is an 88-year-old lady who presented with acute stroke to the ICU for further blood pressure management and monitoring. At present time, we will proceed with close monitoring and allowing autohypertension. Neurology followup. Maintaining euvolemia, euglycemia, normothermia and oxygen saturation more than 90%. We will touch base with Neurology Service whether the risks of continuing therapeutic anticoagulation overweigh the benefits in which case we will stop Eliquis. MRI of the brain, however did not reveal any hemorrhagic conversion. Echocardiogram was done. Carotid Doppler will be ordered. Physical therapy, speech and swallow evaluation will be ordered as well. ccm time 40 min Blaise Holder MD MTDMerced
--- NOTE | 2018-07-16 22:13 | US ---
PROCEDURE: Bilateral carotid artery duplex ultrasound HISTORY: Carotid stenosis PHYSICIAN(S): Austin Nagel MD. TECHNIQUE: Duplex sonography and color-flow Doppler were used to evaluate the carotid bifurcations and limited segments of the vertebral arteries bilaterally. FINDINGS: There is mild smooth heterogeneous plaque noted at the carotid bifurcations bilaterally. The peak systolic velocity in the proximal right internal carotid artery is 61 cm/sec. This corresponds to a 20 to 39% proximal right ICA stenosis. Normal systolic velocities are noted in the proximal right external carotid artery. There is antegrade flow in the right vertebral artery. The peak systolic velocity in the proximal left internal carotid artery is 49 cm/sec. This corresponds to a 20 to 39% proximal left ICA stenosis. Normal systolic velocities are noted in the proximal left external carotid artery. There is antegrade flow in the left vertebral artery. IMPRESSION: 1. Bilateral 20-39% proximal ICA stenoses. 2. Antegrade flow in both vertebral arteries.
--- NOTE | 2018-07-17 02:07 | PN ---
DATE: 07/16/2018 SUBJECTIVE: Patient is an 88-year-old female. Patient was seen and examined at the bedside, 07/16/2018, and looking comfortable. No fever. No chills. No hematuria, hematochezia. No headache. No chest pain. No palpitation. Dizziness and lightheadedness are getting better. PHYSICAL EXAMINATION VITAL SIGNS: Temperature 98, heart rate 84, blood pressure 120/86, respiratory rate 18. HEENT: Head: Normocephalic, atraumatic. Eyes: PERRLA. Extraocular muscles are intact. Conjunctivae clear. Nose patent. Mucous membranes moist. NECK: Supple. No carotid bruit. No JVD, thyromegaly. CHEST: Bilaterally symmetrical. HEART: S1 and S2 positive. LUNGS: Clear to auscultation. ABDOMEN: Soft, nontender. No organomegaly. EXTREMITIES: No clubbing. No cyanosis. No edema. NEUROLOGIC: Patient is awake and alert, oriented x3. Moving all 4 extremities. LABORATORY DATA: Sodium 134, potassium 4.5, chloride 102, carbon dioxide 25, BUN 22, creatinine 1.1, glucose 197. ASSESSMENT AND PLAN: Ms. 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 Since that time, she was having headache, lightheadedness, and dizziness. Patient came to the emergency room.. CAT scan of the head was done, failed to show stroke. When we gave patient physical therapy, she was leaning towards the right side. Then, we did MRI. MRI shows large acute right cerebellar infarction. Then, patient was transferred to intensive care unit. Patient's daughter was on the bedside. Patient has history of hypertension, diabetes mellitus, and on top of that, she hit her head. Continue aspirin, Lipitor, Eliquis as per Infectious Disease and neurologist. Monitoring sugar, blood pressure. Out of bed, physical therapy. Repeat labs. As per patient, she did little bit of physical therapy today. We will improve physical therapy. We will follow up. Gricel Price MD [facility] # [phone]
[2018-07-17 07:18] LABS: BASO # 0.03 K/mm3 (0.0-2.0); BASO % 0.6 % (0.0-3.0); EOS % 0.6 % (1.5-5.0); GRAN # 3.64 (1.4-6.5); GRAN % 69.2 % (50.0-68.0); HEMOGLOBIN 13.8 g/dL (12.0-16.0); LYMPH # 1.2 (1.2-3.4); LYMPH % 22.2 % (22.0-35.0); MEAN CELL VOLUME 81.6 fl (80.0-105.0); MEAN CORPUSCULAR HEMOGLOBIN 28.2 pg (25.0-35.0); MEAN CORPUSCULAR HGB CONC 34.5 g/dl (31.0-37.0); MEAN PLATELET VOLUME 10.6 fl (7.0-11.0); MONO # 0.4 (0.1-0.6); MONO % 7.4 % (1.0-6.0); RBC 4.9 10^6/uL (3.5-6.1); RED CELL DISTRIBUTION WIDTH 14.8 % (11.5-14.5); WHITE BLOOD COUNT 5.3 10^3/uL (4.5-11.0)
--- NOTE | 2018-07-17 07:31 | CP.CCUPN ---
<Yasir Alejandro - Last Filed: 07/17/18 12:50> CCU Subjective - Physician Review Subjective (Free Text): ICU Consult Note for Dr. Holder Patient is seen and examined at bedside. No acute events overnight. She denied chest pain, palpitations, fever, chills, focal weakness or loss of sensation CCU Objective - Vital Signs / Intake & Output Intake and Output (Last 8hrs): Intake & Output 07/16/18 07/17/18 07/17/18 22:59 06:59 14:59 Intake Total 850 Output Total 300 Balance 550 Intake: IV 50 Right Hand 50 Oral 800 Output: Urine 300 Urine, Voided 300 - Physical Exam Head: Positive for: Atraumatic, Normocephalic. Negative for: Abrasion Pupils: Positive for: PERRL. Negative for: Sluggish Extroacular Muscles: Positive for: EOMI. Negative for: Gaze Palsy Conjunctiva: Positive for: Normal, Other (mild echymosis around right eye, no open wound, no discharge) Mouth: Positive for: Moist Mucous Membranes. Negative for: Dry, Normal Teeth Pharnyx: Positive for: Normal. Negative for: ERYTHEMA, Uvular Deviation Neck: Positive for: Normal Range of Motion. Negative for: Meningeal Signs, JVD Respiratory/Chest: Positive for: Clear to Auscultation, Good Air Exchange. Negative for: Wheezes Cardiovascular: Positive for: Irregular Rhythm. Negative for: Tachycardic Abdomen: Positive for: Normal Bowel Sounds. Negative for: Tenderness, Distention, McBurney's Point Tender Upper Extremity: Positive for: Other (limited ROM in right shoulder. no erythema, swelling or signs of infection). Negative for: Cyanosis, Edema, Erythema Lower Extremity: Positive for: Normal Inspection. Negative for: Edema Neurological: Positive for: CN II-XII Intact, Speech Normal. Negative for: Normal Cerebellar Funct Skin: Positive for: Dry, Normal Color. Negative for: Cold Psychiatric: Positive for: Oriented x 3, Normal Insight. Negative for: Normal Mood, Homicidal Ideation - Medications Active Medications: Active Medications Generic Name Dose Route Start Last Admin Trade Name Freq PRN Reason Stop Dose Admin Acetaminophen 650 mg 07/13/18 12:45 07/14/18 22:30 Tylenol 325mg Tab PO 650 mg Q6H PRN Administration Pain, Mild (1-3) Apixaban 5 mg 07/13/18 18:00 07/16/18 17:11 Eliquis PO 5 mg BID KD Administration Protocol Aspirin 81 mg 07/13/18 10:00 07/16/18 09:39 Ecotrin PO 81 mg DAILY KD Administration Atorvastatin Calcium 10 mg 07/16/18 17:00 07/16/18 17:13 Lipitor PO 10 mg DIN KD Administration Diltiazem HCl 30 mg 07/14/18 14:00 07/16/18 17:11 Cardizem PO 30 mg TID KD Administration Hydralazine HCl 50 mg 07/12/18 18:45 07/16/18 17:11 Apresoline PO 50 mg BID KD Administration Insulin Detemir 20 unit 07/13/18 10:00 07/16/18 09:41 Levemir SC 20 unit DAILY KD Administration Insulin Human Regular 0 units 07/12/18 22:00 07/16/18 22:39 Humulin R Low SC Not Given ACHS KD Protocol Lidocaine 1 ea 07/14/18 10:00 07/16/18 09:39 Lidoderm TOP 1 ea DAILY KD Administration Losartan Potassium 100 mg 07/13/18 10:00 07/16/18 09:40 Cozaar PO 100 mg DAILY KD Administration Meclizine HCl 25 mg 07/15/18 18:00 07/16/18 17:10 Antivert PO 25 mg BID KD Administration Pantoprazole Sodium 40 mg 07/13/18 14:15 07/16/18 09:39 Protonix Ec Tab PO 40 mg DAILY KD Administration Sotalol HCl 80 mg 07/14/18 18:00 07/16/18 17:11 Betapace PO 80 mg BID KD Administration - Patient Studies Lab Studies: Lab Studies 07/17/18 07/16/18 07/16/18 Range/Units 06:50 21:40 16:13 WBC 5.3 D (4.5-11.0) 10^3/uL RBC 4.90 (3.5-6.1) 10^6/uL Hgb 13.8 (12.0-16.0) g/dL Hct 40.0 (36.0-48.0) % MCV 81.6 (80.0-105.0) fl MCH 28.2 (25.0-35.0) pg MCHC 34.5 (31.0-37.0) g/dl RDW 14.8 H (11.5-14.5) % Plt Count 222 (120.0-450.0) 10^3/uL MPV 10.6 (7.0-11.0) fl Gran % 69.2 H (50.0-68.0) % Lymph % (Auto) 22.2 (22.0-35.0) % Foster % (Auto) 7.4 H (1.0-6.0) % Eos % (Auto) 0.6 L (1.5-5.0) % Baso % (Auto) 0.6 (0.0-3.0) % Gran # 3.64 (1.4-6.5) Lymph # (Auto) 1.2 (1.2-3.4) Foster # (Auto) 0.4 (0.1-0.6) Eos # (Auto) 0.0 (0.0-0.7) Baso # (Auto) 0.03 (0.0-2.0) K/mm3 Sodium (132-148) mmol/L Potassium (3.6-5.0) mmol/L Chloride (98-107) mmol/L Carbon Dioxide (21-33) mmol/L Anion Gap (10-20) BUN (7-21) mg/dL Creatinine (0.7-1.2) mg/dl Est GFR ( Amer) Est GFR (Non-Af Amer) POC Glucose (mg/dL) 236 H 268 H (65-110) mg/dL Random Glucose (70-110) mg/dL Calcium (8.4-10.5) mg/dL Phosphorus (2.5-4.5) mg/dL Magnesium (1.7-2.2) mg/dL Total Bilirubin (0.2-1.3) mg/dL AST (14-36) U/L ALT (7-56) U/L Alkaline Phosphatase (38-126) U/L Total Protein (5.8-8.3) g/dL Albumin (3.0-4.8) g/dL Globulin gm/dL Albumin/Globulin Ratio (1.1-1.8) Triglycerides (35-160) mg/dL Cholesterol (130-200) mg/dL LDL Cholesterol Direct (0-129) mg/dL HDL Cholesterol (29-60) mg/dL 07/16/18 07/16/18 07/16/18 Range/Units 11:46 08:10 08:10 WBC 7.1 D (4.5-11.0) 10^3/uL RBC 4.65 (3.5-6.1) 10^6/uL Hgb 13.1 (12.0-16.0) g/dL Hct 37.8 (36.0-48.0) % MCV 81.3 (80.0-105.0) fl MCH 28.2 (25.0-35.0) pg MCHC 34.7 (31.0-37.0) g/dl RDW 14.9 H (11.5-14.5) % Plt Count 210 (120.0-450.0) 10^3/uL MPV 9.8 (7.0-11.0) fl Gran % 73.5 H (50.0-68.0) % Lymph % (Auto) 18.4 L (22.0-35.0) % Foster % (Auto) 7.9 H (1.0-6.0) % Eos % (Auto) 0.1 L (1.5-5.0) % Baso % (Auto) 0.1 (0.0-3.0) % Gran # 5.18 (1.4-6.5) Lymph # (Auto) 1.3 (1.2-3.4) Foster # (Auto) 0.6 (0.1-0.6) Eos # (Auto) 0.0 (0.0-0.7) Baso # (Auto) 0.01 (0.0-2.0) K/mm3 Sodium 134 (132-148) mmol/L Potassium 4.5 (3.6-5.0) mmol/L Chloride 102 (98-107) mmol/L Carbon Dioxide 25 (21-33) mmol/L Anion Gap 12 (10-20) BUN 22 H (7-21) mg/dL Creatinine 1.1 (0.7-1.2) mg/dl Est GFR ( Amer) 57 Est GFR (Non-Af Amer) 47 POC Glucose (mg/dL) 298 H (65-110) mg/dL Random Glucose 197 H (70-110) mg/dL Calcium 9.3 (8.4-10.5) mg/dL Phosphorus 4.4 (2.5-4.5) mg/dL Magnesium 1.6 L (1.7-2.2) mg/dL Total Bilirubin 0.6 (0.2-1.3) mg/dL AST 29 (14-36) U/L ALT 24 (7-56) U/L Alkaline Phosphatase 86 (38-126) U/L Total Protein 7.3 (5.8-8.3) g/dL Albumin 3.7 (3.0-4.8) g/dL Globulin 3.6 gm/dL Albumin/Globulin Ratio 1.0 L (1.1-1.8) Triglycerides (35-160) mg/dL Cholesterol (130-200) mg/dL LDL Cholesterol Direct (0-129) mg/dL HDL Cholesterol (29-60) mg/dL 07/16/18 07/16/18 Range/Units 08:00 07:41 WBC (4.5-11.0) 10^3/uL RBC (3.5-6.1) 10^6/uL Hgb (12.0-16.0) g/dL Hct (36.0-48.0) % MCV (80.0-105.0) fl MCH (25.0-35.0) pg MCHC (31.0-37.0) g/dl RDW (11.5-14.5) % Plt Count (120.0-450.0) 10^3/uL MPV (7.0-11.0) fl Gran % (50.0-68.0) % Lymph % (Auto) (22.0-35.0) % Foster % (Auto) (1.0-6.0) % Eos % (Auto) (1.5-5.0) % Baso % (Auto) (0.0-3.0) % Gran # (1.4-6.5) Lymph # (Auto) (1.2-3.4) Foster # (Auto) (0.1-0.6) Eos # (Auto) (0.0-0.7) Baso # (Auto) (0.0-2.0) K/mm3 Sodium (132-148) mmol/L Potassium (3.6-5.0) mmol/L Chloride (98-107) mmol/L Carbon Dioxide (21-33) mmol/L Anion Gap (10-20) BUN (7-21) mg/dL Creatinine (0.7-1.2) mg/dl Est GFR ( Amer) Est GFR (Non-Af Amer) POC Glucose (mg/dL) 228 H (65-110) mg/dL Random Glucose (70-110) mg/dL Calcium (8.4-10.5) mg/dL Phosphorus (2.5-4.5) mg/dL Magnesium (1.7-2.2) mg/dL Total Bilirubin (0.2-1.3) mg/dL AST (14-36) U/L ALT (7-56) U/L Alkaline Phosphatase (38-126) U/L Total Protein (5.8-8.3) g/dL Albumin (3.0-4.8) g/dL Globulin gm/dL Albumin/Globulin Ratio (1.1-1.8) Triglycerides 80 (35-160) mg/dL Cholesterol 202 H (130-200) mg/dL LDL Cholesterol Direct 108 (0-129) mg/dL HDL Cholesterol 71 H (29-60) mg/dL Laboratory Results - last 24 hr 07/16/18 07/16/18 07/16/18 07:41 08:00 08:10 WBC RBC Hgb Hct MCV MCH MCHC RDW Plt Count MPV Gran % Lymph % (Auto) Foster % (Auto) Eos % (Auto) Baso % (Auto) Gran # Lymph # (Auto) Foster # (Auto) Eos # (Auto) Baso # (Auto) Sodium 134 Potassium 4.5 Chloride 102 Carbon Dioxide 25 Anion Gap 12 BUN 22 H Creatinine 1.1 Est GFR ( Amer) 57 Est GFR (Non-Af Amer) 47 POC Glucose (mg/dL) 228 H Random Glucose 197 H Calcium 9.3 Phosphorus 4.4 Magnesium 1.6 L Total Bilirubin 0.6 AST 29 ALT 24 Alkaline Phosphatase 86 Total Protein 7.3 Albumin 3.7 Globulin 3.6 Albumin/Globulin Ratio 1.0 L Triglycerides 80 Cholesterol 202 H LDL Cholesterol Direct 108 HDL Cholesterol 71 H 07/16/18 07/16/18 07/16/18 08:10 11:46 16:13 WBC 7.1 D RBC 4.65 Hgb 13.1 Hct 37.8 MCV 81.3 MCH 28.2 MCHC 34.7 RDW 14.9 H Plt Count 210 MPV 9.8 Gran % 73.5 H Lymph % (Auto) 18.4 L Foster % (Auto) 7.9 H Eos % (Auto) 0.1 L Baso % (Auto) 0.1 Gran # 5.18 Lymph # (Auto) 1.3 Foster # (Auto) 0.6 Eos # (Auto) 0.0 Baso # (Auto) 0.01 Sodium Potassium Chloride Carbon Dioxide Anion Gap BUN Creatinine Est GFR ( Amer) Est GFR (Non-Af Amer) POC Glucose (mg/dL) 298 H 268 H Random Glucose Calcium Phosphorus Magnesium Total Bilirubin AST ALT Alkaline Phosphatase Total Protein Albumin Globulin Albumin/Globulin Ratio Triglycerides Cholesterol LDL Cholesterol Direct HDL Cholesterol 07/16/18 07/17/18 21:40 06:50 WBC 5.3 D RBC 4.90 Hgb 13.8 Hct 40.0 MCV 81.6 MCH 28.2 MCHC 34.5 RDW 14.8 H Plt Count 222 MPV 10.6 Gran % 69.2 H Lymph % (Auto) 22.2 Foster % (Auto) 7.4 H Eos % (Auto) 0.6 L Baso % (Auto) 0.6 Gran # 3.64 Lymph # (Auto) 1.2 Foster # (Auto) 0.4 Eos # (Auto) 0.0 Baso # (Auto) 0.03 Sodium Potassium Chloride Carbon Dioxide Anion Gap BUN Creatinine Est GFR ( Amer) Est GFR (Non-Af Amer) POC Glucose (mg/dL) 236 H Random Glucose Calcium Phosphorus Magnesium Total Bilirubin AST ALT Alkaline Phosphatase Total Protein Albumin Globulin Albumin/Globulin Ratio Triglycerides Cholesterol LDL Cholesterol Direct HDL Cholesterol Fingerstick Blood Sugar Results: 236 Critical Care Progress Note - Nutrition Nutrition: Nutrition Category Date Time Status Heart Healthy Diet [DIET] Diets 07/12/18 Dinner Active Assessment/Plan - Assessment and Plan (Free Text) Assessment: 88 yo F with PMH of HLD, HTN, DM, anemia admitted for syncope work up. 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 Patient is clinically stable. No neurologic deficits noted Plan: Neuro: - No motor or sensory deficits - CT head: negative - MRI brain: large right cerebellar infarct - Maintain SBP < 140 - As per neurology Dr Parish: continue Eliquis, ASA, Lipitor. BP control, maintain euglycemia - Speech and swallow eval - PT/OT -Acute rehab upon discharge CV: - Echo: EF 57%, pHTN, LVH, IHSS - Carotid U/S: b/l 20-39% proximal ICA stenosis - BP control: hydralazine and losartan - A-fib on telemetry - Continue Cardizem and Sotolol for rate control - Continue Eliquis 5 mg BID - Cardiology consulted (Dr Lemon): continue BB, ASA, Eliquis. outpatient f/u - Maintain MAP>65. - Maintain BP 130-140/70-80 MSK: - Right shoulder limited ROM likely due to acromioclavicular joint arthritis and impingement - CT right shoulder: acromioclavicular arthropathy and degerative changes. No fracture or dislocation - Orthopedics consulted (Dr Garcia): steriod injection given, PT, ambulate with cane Renal: - Maintain euvolemia - Monitor electrolytes and replete as needed - Purewick external catheter in place - In/out 850/300 in last 24 hours Endo: - BG 222 - Levemir increased to 30U - ISS adjusted to medium scale - Accuchecks ACHS - Maintain euglycemia (140-180) Heme: -h/o anemia -H/H stable Prophylaxis: - DVT PPx: Eliquis - GI PPx: Protonix Patient seen and discussed in detail with attending Dr. Glory Alejandro, DO, PGY1 <Bliase Holder - Last Filed: 07/17/18 16:21> CCU Objective - Vital Signs / Intake & Output Vital Signs (Last 4 hours): Vital Signs Pulse 07/17/18 14:00 84 Intake and Output (Last 8hrs): Intake & Output 07/17/18 07/17/18 07/17/18 06:59 14:59 22:59 Intake Total 120 Output Total 400 Balance -280 Weight 151 lb Intake: Oral 120 Output: Urine 400 Urine, Voided 400 - Medications Active Medications: Active Medications Generic Name Dose Route Start Last Admin Trade Name Freq PRN Reason Stop Dose Admin Acetaminophen 650 mg 07/13/18 12:45 07/14/18 22:30 Tylenol 325mg Tab PO 650 mg Q6H PRN Administration Pain, Mild (1-3) Apixaban 2.5 mg 07/17/18 10:00 07/17/18 10:37 Eliquis PO 2.5 mg BID KD Administration Protocol Aspirin 81 mg 07/13/18 10:00 07/17/18 10:37 Ecotrin PO 81 mg DAILY KD Administration Atorvastatin Calcium 40 mg 07/17/18 11:36 Lipitor PO DIN KD Diltiazem HCl 30 mg 07/14/18 14:00 07/17/18 10:37 Cardizem PO 30 mg TID KD Administration Hydralazine HCl 50 mg 07/12/18 18:45 07/17/18 10:36 Apresoline PO 50 mg BID KD Administration Insulin Detemir 30 unit 07/17/18 10:29 Levemir SC DAILY [facility] Insulin Human Regular 0 units 07/17/18 11:30 Humulin R Med SC ACHS [facility] Protocol Lidocaine 1 ea 07/14/18 10:00 07/17/18 10:38 Lidoderm TOP 1 ea DAILY KD Administration Losartan Potassium 100 mg 07/13/18 10:00 07/17/18 10:36 Cozaar PO 100 mg DAILY KD Administration Meclizine HCl 25 mg 07/15/18 18:00 07/17/18 10:38 Antivert PO 25 mg BID KD Administration Pantoprazole Sodium 40 mg 07/13/18 14:15 07/17/18 10:37 Protonix Ec Tab PO 40 mg DAILY [facility] Administration Sotalol HCl 80 mg 07/14/18 18:00 07/17/18 10:36 Betapace PO 80 mg BID KD Administration - Patient Studies Lab Studies: Microbiology Studies 07/15/18 21:51 MRSA Culture (Admit) - Final Naris MRSA NOT DETECTED Lab Studies 07/17/18 07/17/18 07/17/18 Range/Units 15:05 08:40 06:50 WBC (4.5-11.0) 10^3/uL RBC (3.5-6.1) 10^6/uL Hgb (12.0-16.0) g/dL Hct (36.0-48.0) % MCV (80.0-105.0) fl MCH (25.0-35.0) pg MCHC (31.0-37.0) g/dl RDW (11.5-14.5) % Plt Count (120.0-450.0) 10^3/uL MPV (7.0-11.0) fl Gran % (50.0-68.0) % Lymph % (Auto) (22.0-35.0) % Foster % (Auto) (1.0-6.0) % Eos % (Auto) (1.5-5.0) % Baso % (Auto) (0.0-3.0) % Gran # (1.4-6.5) Lymph # (Auto) (1.2-3.4) Foster # (Auto) (0.1-0.6) Eos # (Auto) (0.0-0.7) Baso # (Auto) (0.0-2.0) K/mm3 Sodium 132 (132-148) mmol/L Potassium 4.7 (3.6-5.0) mmol/L Chloride 100 (98-107) mmol/L Carbon Dioxide 26 (21-33) mmol/L Anion Gap 10 (10-20) BUN 28 H (7-21) mg/dL Creatinine 1.1 (0.7-1.2) mg/dl Est GFR ( Amer) 57 Est GFR (Non-Af Amer) 47 POC Glucose (mg/dL) 302 H 270 H (65-110) mg/dL Random Glucose 222 H (70-110) mg/dL Calcium 9.1 (8.4-10.5) mg/dL Total Bilirubin 0.4 (0.2-1.3) mg/dL AST 26 (14-36) U/L ALT 28 (7-56) U/L Alkaline Phosphatase 86 (38-126) U/L Total Protein 7.5 (5.8-8.3) g/dL Albumin 3.6 (3.0-4.8) g/dL Globulin 3.9 gm/dL Albumin/Globulin Ratio 0.9 L (1.1-1.8) 07/17/18 07/16/18 Range/Units 06:50 21:40 WBC 5.3 D (4.5-11.0) 10^3/uL RBC 4.90 (3.5-6.1) 10^6/uL Hgb 13.8 (12.0-16.0) g/dL Hct 40.0 (36.0-48.0) % MCV 81.6 (80.0-105.0) fl MCH 28.2 (25.0-35.0) pg MCHC 34.5 (31.0-37.0) g/dl RDW 14.8 H (11.5-14.5) % Plt Count 222 (120.0-450.0) 10^3/uL MPV 10.6 (7.0-11.0) fl Gran % 69.2 H (50.0-68.0) % Lymph % (Auto) 22.2 (22.0-35.0) % Foster % (Auto) 7.4 H (1.0-6.0) % Eos % (Auto) 0.6 L (1.5-5.0) % Baso % (Auto) 0.6 (0.0-3.0) % Gran # 3.64 (1.4-6.5) Lymph # (Auto) 1.2 (1.2-3.4) Foster # (Auto) 0.4 (0.1-0.6) Eos # (Auto) 0.0 (0.0-0.7) Baso # (Auto) 0.03 (0.0-2.0) K/mm3 Sodium (132-148) mmol/L Potassium (3.6-5.0) mmol/L Chloride (98-107) mmol/L Carbon Dioxide (21-33) mmol/L Anion Gap (10-20) BUN (7-21) mg/dL Creatinine (0.7-1.2) mg/dl Est GFR ( Amer) Est GFR (Non-Af Amer) POC Glucose (mg/dL) 236 H (65-110) mg/dL Random Glucose (70-110) mg/dL Calcium (8.4-10.5) mg/dL Total Bilirubin (0.2-1.3) mg/dL AST (14-36) U/L ALT (7-56) U/L Alkaline Phosphatase (38-126) U/L Total Protein (5.8-8.3) g/dL Albumin (3.0-4.8) g/dL Globulin gm/dL Albumin/Globulin Ratio (1.1-1.8) Laboratory Results - last 24 hr 07/16/18 07/17/18 07/17/18 21:40 06:50 06:50 WBC 5.3 D RBC 4.90 Hgb 13.8 Hct 40.0 MCV 81.6 MCH 28.2 MCHC 34.5 RDW 14.8 H Plt Count 222 MPV 10.6 Gran % 69.2 H Lymph % (Auto) 22.2 Foster % (Auto) 7.4 H Eos % (Auto) 0.6 L Baso % (Auto) 0.6 Gran # 3.64 Lymph # (Auto) 1.2 Foster # (Auto) 0.4 Eos # (Auto) 0.0 Baso # (Auto) 0.03 Sodium 132 Potassium 4.7 Chloride 100 Carbon Dioxide 26 Anion Gap 10 BUN 28 H Creatinine 1.1 Est GFR ( Amer) 57 Est GFR (Non-Af Amer) 47 POC Glucose (mg/dL) 236 H Random Glucose 222 H Calcium 9.1 Total Bilirubin 0.4 AST 26 ALT 28 Alkaline Phosphatase 86 Total Protein 7.5 Albumin 3.6 Globulin 3.9 Albumin/Globulin Ratio 0.9 L 07/17/18 07/17/18 08:40 15:05 WBC RBC Hgb Hct MCV MCH MCHC RDW Plt Count MPV Gran % Lymph % (Auto) Foster % (Auto) Eos % (Auto) Baso % (Auto) Gran # Lymph # (Auto) Foster # (Auto) Eos # (Auto) Baso # (Auto) Sodium Potassium Chloride Carbon Dioxide Anion Gap BUN Creatinine Est GFR ( Amer) Est GFR (Non-Af Amer) POC Glucose (mg/dL) 270 H 302 H Random Glucose Calcium Total Bilirubin AST ALT Alkaline Phosphatase Total Protein Albumin Globulin Albumin/Globulin Ratio Critical Care Progress Note - Nutrition Nutrition: Nutrition Category Date Time Status Heart Healthy Diet [DIET] Diets 07/12/18 Dinner Active Attending/Attestation - Attestation I have personally seen and examined this patient.: Yes I have fully participated in the care of the patient.: Yes I have reviewed all pertinent clinical information: Yes Notes (Text): 07/17/18 16:19 88 yo female with cerebellar stroke, now in ICU. BPs 130s, normothermia, euglycemic, 02sat 96 on room air. comfortable protecting airways. On eliquis as per neuro. GI prophylaxis. neuro requested additional 24 hrs icu monitoring due to location of the stroke
[2018-07-17 07:51] LABS: ALB/GLOB RATIO 0.9 (1.1-1.8); ALBUMIN 3.6 g/dL (3.0-4.8); CALCIUM 9.1 mg/dL (8.4-10.5)
[2018-07-17 08:16] VITALS: TEMP 98
[2018-07-17] MEDS: Insulin Reg-LOW-Coverage SC SCH (09:27)
[2018-07-17] MEDS: Insulin Detemir 100 units/ml Vial (Levemir) SC SCH (10:00)
[2018-07-17] MEDS ORDERED: Insulin Detemir 100 units/ml Vial (Levemir) SC SCH (10:29)
[2018-07-17] MEDS: Pantoprazole 40 mg EC Tab PO SCH (10:37)
[2018-07-17] MEDS: Lidocaine 5% Patch TOP SCH (10:38)
--- NOTE | 2018-07-17 13:03 | PN ---
DATE: 07/17/2018 REASON FOR CONSULTATION: Cardiac evaluation; admitted with near syncope; AFib; IHSS, mild gradient 36 mm across LVOT; CVA, acute. SUBJECTIVE: The patient is currently in ICU 128, bed 5. Denies any chest pain, shortness of breath or any palpitation. Lying flat in bed. OBJECTIVE: GENERAL: Lying comfortable in the bed. Nursing staff states that the patient on standing, leans forward towards the right, cerebral ataxia. VITAL SIGNS: Temperature afebrile, heart rate 93, blood pressure 150/82. HEENT: PERRLA. Extraocular muscles intact. NECK: Supple. No carotid bruit. No thyromegaly. CHEST: Clear to auscultation. HEART: S1 and S2 regular. ABDOMEN: Soft. EXTREMITIES: Clubbing and cyanosis negative. LABORATORY DATA: Blood workup as follows: WBC 5.3, hemoglobin 13.8, hematocrit 40.0, platelet count 222,000. Chemistry shows sodium 130, potassium 4.0, chloride 100, carbon dioxide 26, anion gap of 10, BUN 28, creatinine 1.1. 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 Initial CAT scan was negative. Patient was getting physical therapy, getting more ataxic with falling towards right side. MRI shows a large cerebellar infarct, right cerebellum. Moved to ICU, currently in ICU, feels okay. Denies any chest pain, shortness of breath or any palpitation. Moving all extremities. No focal localizing signs noted with ataxia. It is being followed by neurologist. Patient has underlying atrial fibrillation. 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 RECOMMENDATION: Continue sotalol, started. Continue Cardizem, continue Eliquis, continue rehab, continue losartan for blood pressure suggested by neurologist, baby aspirin, Eliquis 2.5 for prevention of stroke. When we calculated renal function and age, the patient falls into the category of and we will discontinue 5 mg of Eliquis and change to 2.5 mg twice a day. Continue rehab. Patient had carotid duplex ultrasound done yesterday that showed bilateral 20 to 90% stenosis, no significant stenosis noted. We will follow with you. Thank you Dr. Price for providing us the opportunity in taking care of the patient, Soila Isidro. Jorge Lemon MD
[2018-07-17] MEDS: Insulin Reg-MEDIUM-Coverage SC SCH ×2 (14:00→18:00)
[2018-07-17 17:03] VITALS: BP 110/86; RESP 16; O2SAT 99
[2018-07-17 18:29] VITALS: PULSE 79
--- NOTE | 2018-07-18 09:56 | DS ---
DISCHARGED TO REHAB: 07/17/2018 The patient was seen and examined at the bedside on 07/17/2018. CHIEF COMPLAINT: Headache, lightheadedness, dizziness, syncope attack. HISTORY OF PRESENT ILLNESS: Mrs. Soila Isidro 88 years old female with past medical history of diabetes mellitus, hypertension, hypercholesterolemia, came to [facility] due to lightheadedness, syncope, dizziness, fall. 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 She started feeling lightheadedness, dizziness, feeling of passing out and fell on her face, especially on the right side of the forehead. There was a bump over there, that resolved slowly. We admitted the patient, did CAT scan of the head, MRI. Neurology consult was called. The patient was transferred to ICU. CAT scan was negative. MRI shows large stroke. The patient was given physical therapy. The patient was cleared by the neurologist to discharge on subacute rehab. Family selected [facility] and the patient was discharged to [facility]. PAST MEDICAL HISTORY: Diabetes mellitus, hypertension, hypercholesterolemia. HOME MEDICATIONS: Reviewed by me. ALLERGIES: THE PATIENT IS NOT ALLERGIC TO ANY MEDICATIONS. FAMILY HISTORY: Father and mother, noncontributory. HABITS: Never smoked. No drugs. No ethanol. REVIEW OF SYSTEMS: The patient was seen and examined at bedside, looking comfortable. No fever. No chills. No headache. No dizziness with movement. No chest pain. No palpitation. PHYSICAL EXAMINATION: VITAL SIGNS: Temperature 98.6, heart rate 83, blood pressure 150/80, respiratory rate 18. HEENT: Head normocephalic and atraumatic. Eyes, PERRLA. Extraocular muscles are intact. Conjunctivae clear. Nose patent. Mucous membranes moist. NECK: Supple. No carotid bruits. No JVD or thyromegaly. CHEST: Bilaterally symmetrical. HEART: S1 and S2 positive. LUNGS: Clear to auscultation. ABDOMEN: Soft. Bowel sounds positive. No organomegaly. EXTREMITIES: No edema. No cyanosis. NEUROLOGIC: The patient is awake and alert. Moving all four extremities. No focal deficit. MEDICATIONS: Reviewed by me. ASSESSMENT AND PLAN: Mrs. 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 The patient was given physical therapy that shows ataxia toward the right side. MRI shows large cerebral infarction in right cerebellum. The patient moved to the ICU. The patient felt better in ICU, denies any chest pain or shortness of breath. Moving all four extremities. No focal deficit. She suffers with atrial fibrillation, idiopathic hypertrophic aortic stenosis physiology. Recommended sotalol, Cardizem, rehab, aspirin, Eliquis. The patient should be on fall precautions. Continue Eliquis 2.5 twice a day. Continue rehab. 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 The patient is transferred. Follow up with primary care physician and Neurology. Gricel Price MD
== END 2018-07-17 20:34 | DRG 65 ==
LOC: ED 12:36 → ERH 15:36 → 2RNO 17:27 → 2RSO 22:50 → OBSVTOIN 07-14 16:44 → ICU 07-15 20:50
PROVIDERS: ADMIT Internal Medicine; ATTEND Internal Medicine
PROC: 3E0U33Z Introduction of Anti-inflammatory into Joints, Percutaneous Approach (ICD-10-PCS; principal; 2018-07-15)
PROC: 3E0U3BZ Introduction of Anesthetic Agent into Joints, Percutaneous Approach (ICD-10-PCS; 2018-07-15)
DX: I63.9 Cerebral infarction, unspecified (principal); I42.1 Obstructive hypertrophic cardiomyopathy; I48.91 Unspecified atrial fibrillation; I11.0 Hypertensive heart disease with heart failure; I50.9 Heart failure, unspecified; E11.65 Type 2 diabetes mellitus with hyperglycemia; H81.10 Benign paroxysmal vertigo, unspecified ear; I08.1 Rheumatic disorders of both mitral and tricuspid valves; M19.011 Primary osteoarthritis, right shoulder; M75.51 Bursitis of right shoulder; M75.41 Impingement syndrome of right shoulder; S40.011A Contusion of right shoulder, initial encounter; D64.9 Anemia, unspecified; E11.42 Type 2 diabetes mellitus with diabetic polyneuropathy; E78.00 Pure hypercholesterolemia, unspecified; I27.20 Pulmonary hypertension, unspecified; E78.5 Hyperlipidemia, unspecified; W18.09XA Striking against other object with subsequent fall, initial encounter; Z79.82 Long term (current) use of aspirin; Z79.4 Long term (current) use of insulin